=== PATIENT | male | born 1980 | race Caucasian/White ===

== ENCOUNTER 2018-10-03 14:55 | Inpatient (IN) | payer OTHER ==
[2018-10-03 15:13] VITALS: BMI 27.1
--- NOTE | 2018-10-03 16:31 | HP ---
CIWA Score Nausea/Vomitin-Mild Nausea/No Vomiting Muscle Tremors: 4-Moderate,w/Arms Extend Anxiety: 1-Mildly Anxious Agitation: 4-Moderately Restless Paroxysmal Sweats: 3 (facial moisture) Orientation: 1-Uncertain about Date Tacttile Disturbances: 0-None Auditory Disturbances: 0-None Visual Disturbances: 0-None Headache: 2-Mild CIWA-Ar Total Score: 16 - Admission Criteria [facility] Guidelines: Admission for Medically Managed Detox: Requires at least one of the followin. CIWA greater than 12 2. Seizures within the past 24 hours 3. Delirium tremens within the past 24 hours 4. Hallucinations within the past 24 hours 5. Acute intervention needed for co occurring medical disorder 6. Acute intervention needed for co occurring psychiatric disorder 7. Severe withdrawal that cannot be handled at a lower level of care (continued vomiting, continued diarrhea, abnormal vital signs) requiring intravenous medication and/or fluids 8. Patient presents the following: CIWA greater than 12 Admission Criteria Met: Admission criteria met Admission ROS [facility] Chief Complaint: Here for Xanax and Klonopin withdrawal. Allergies/Adverse Reactions: Allergies Allergy/AdvReac Type Severity Reaction Status Date / Time Fish Containing Products Allergy Severe Rash Verified 10/03/18 17:40 History of Present Illness: Here for Xanax detox. States also uses clonazepam. Heroin IVDU use since age 16. Stopped when started on MMTP. Klonopin and Xanax use since age 14. Started with prescriptions and then illicit use. Marijuana use since 14. [facility] - [phone] for approx 3 years. States currently on 135 mg Methadone PO Daily. Last medicated today and given 2 THBs. Hx: Last seizure 1 year ago, last overdose 2 yrs ago. Denies significant PMH/PSH Patient Name: Emeka Abel Date: 1980 Address: [address] [place] [address] Sex: Male Rx Written Rx Dispensed Drug Quantity Days Supply Prescriber Name 05/15/2018 05/15/2018 clonazepam 2 mg tablet 14 7 Wilmer Verma 05/08/2018 05/08/2018 clonazepam 2 mg tablet 14 7 Wilmer Verma 04/01/2018 04/01/2018 clonazepam 2 mg tablet 60 30 Cris Iglesias Patient Name: Emeka Abel Date: 1980 Address: [place] [address] Sex: Male Rx Written Rx Dispensed Drug Quantity Days Supply Prescriber Name 01/10/2018 01/11/2018 alprazolam 1 mg tablet 60 30 Tayler Beard MD Exam Limitations: No Limitations - Ebola screening Have you traveled outside of the country in the last 21 days: No Have you had contact with anyone from an Ebola affected area: No Have you been sick,other than usual withdrawal symptoms: No Do you have a fever: No - Review of Systems Constitutional: Diaphoresis, Changes in sleep (Difficulty falling and staying asleep) EENT: reports: Dental Problems (Missing teeth, chipped teeth. No pain. Chews and swallows ok.) Respiratory: reports: No Symptoms reported Cardiac: reports: Irregular Heart Rate (In the past - states normal now) GI: reports: Blood Streaked Bowels (when contipated and pushes hard.), Constipated (r/t methadone - sometimes. Resolves w/ increased fibre, water), Nausea : reports: No Symptoms Reported Musculoskeletal: reports: Back Pain (Intermittent low back pain x 5 years. Poking pain fluctuates from 0-10. Relieved w/ pain medications, rest/ relaxation. Increases w/ sleeping in wrong position, bending.) Integumentary: reports: Rash (on knuckles - dry) Neuro: reports: Headache (Mild), Tremors Endocrine: reports: No Symptoms Reported Hematology: reports: No Symptoms Reported Psychiatric: reports: Judgement Intact, Agitated, Anxious (Very nervous and anxious), Depressed (States mild. Denies thoughts of harming self or others), Disorientated (Knows month, year, missed date by 2 days) Patient History - PPD History Previous Implant?: Yes Documented Results: Negative w/o proof Implanted On Prior [facility] Admission?: No PPD to be Administered?: Yes - Smoking Cessation Smoking history: Current every day smoker Have you smoked in the past 12 months: Yes Aproximately how many cigarettes per day: 20 Hx Chewing Tobacco Use: No Initiated information on smoking cessation: No 'Breaking Loose' booklet given: 10/03/18 - Substance & Tx. History Hx Alcohol Use: Yes Hx Substance Use: Yes Substance Use Type: Cocaine, Heroin (Stopped 3 years ago and is on a MMTP), Marijuana Hx Substance Use Treatment: Yes (detox, currently on a MMTP) - Substances Abused Alprazolam (Xanax) Age of first use: 14 Marijuana/Hashish Route: Smoking Age of first use: 14 Benzodiazepine (Klonopin) Route: Oral Frequency: Daily Amount used: 2MG Age of first use: 14 Date of Last Use: 10/03/18 Admission Physical Exam [facility] - Vital Signs Vital Signs: Vital Signs - 24 hr 10/03/18 15:09 Temperature 98.3 F Pulse Rate 84 Respiratory 18 Rate Blood Pressure 132/58 L - Physical General Appearance: Yes: Moderate Distress, Tremorous, Irritable, Anxious (Very) HEENTM: Yes: EOMI, Hearing grossly Normal, Normal Voice, MICHELLE, Pharynx Normal Respiratory: Yes: Chest Non-Tender, Lungs Clear, Normal Breath Sounds, No Respiratory Distress Neck: Yes: No masses,lesions,Nodules, Supple Breast: Yes: Breast Exam Deferred Cardiology: Yes: Regular Rhythm, Regular Rate, S1, S2 Abdominal: Yes: Non Tender, Soft, Increased Bowel Sounds Genitourinary: Yes: Within Normal Limits Back: Yes: Normal Inspection Musculoskeletal: Yes: full range of Motion, Gait Steady Extremities: Yes: Normal Capillary Refill, Normal Range of Motion, Non-Tender, Tremors (w/ aems extended) Neurological: Yes: wet roller II-XII NML intact, Alert, Motor Strength 5/5, Normal Response Integumentary: Yes: Normal Color, Dry, Warm, Rash (Dry, raised, flaky psoriasis- like rash on knuckles) Lymphatic: Yes: Within Normal Limits - Diagnostic (1) Sedative, hypnotic or anxiolytic dependence with withdrawal, uncomplicated Current Visit: Yes Status: Acute (2) Nicotine dependence, uncomplicated Current Visit: Yes Status: Chronic Qualifiers: Nicotine product type: cigarettes Qualified Code(s): F17.210 - Nicotine dependence, cigarettes, uncomplicated (3) Methadone maintenance therapy patient Current Visit: Yes Status: Chronic (4) Cannabis dependence, uncomplicated Current Visit: Yes Status: Chronic (5) Rash Current Visit: Yes Status: Chronic Comment: psoritic-like rash on knuckles Cleared for Admission [facility] - Detox or Rehab [facility] Level of Care: Medically Managed Detox Regimen/Protocol: Valium [facility] Breath Alcohol Content Breath Alcohol Content: 0 Urine Drug Screen - Results Drug Screen Negative: No Urine Drug Screen Results: THC-Marijuana, BZO-Benzodiazepines, MTD-Methadone
[2018-10-03] MEDS ORDERED: MAGNESIUM HYDROX 2400MG/30ML ORAL SUSPENSION 30 ML CUP PO PRN (17:05)
[2018-10-03] MEDS ORDERED: MAG HYDROX/AL HYDROX/SIMETH 30 ML UNIT-DOSE CUP PO PRN (17:05)
[2018-10-03] MEDS ORDERED: ACETAMINOPHEN 325 MG TABLET (FP) PO PRN (17:05)
[2018-10-03] MEDS ORDERED: MENTHOL/PHENOL 1 EACH UD MM PRN (17:05)
[2018-10-03] MEDS ORDERED: NICOTINE POLACRILEX 2 MG GUM BC PRN (17:05)
[2018-10-03] MEDS ORDERED: MAGNESIUM CITRATE 300 ML BOTTLE PO PRN (17:05)
[2018-10-03] MEDS ORDERED: LOPERAMIDE HCL 2 MG CAPSULE PO PRN (17:05)
[2018-10-03] MEDS ORDERED: diazePAM 5 MG TABLET PO ONE (18:30)
[2018-10-03] MEDS: diazePAM 5 MG TABLET PO SCH (21:55)
[2018-10-03] MEDS: THIAMINE HCL 100 MG TABLET (FP) PO SCH (21:55)
[2018-10-03] MEDS: MELATONIN 5 MG TABLETS PO PRN (21:56)
[2018-10-03] MEDS: BETAMETHASONE DIP 0.05% TP LOTION 60 ML BOTTLE TP SCH (23:08)
[2018-10-04] MEDS: diazePAM 5 MG TABLET PO SCH ×3 (05:25→22:11)
[2018-10-04] MEDS ORDERED: METHADONE HCL 40 MG DISPERSABLE TABLET PO SCH (10:00)
[2018-10-04] MEDS: diazePAM 5 MG TABLET PO PRN ×3 (10:43→23:55)
[2018-10-04] MEDS: PRENATAL VITAMINS W/ FOLIC ACID TABLET (FP) PO SCH (10:43)
[2018-10-04] MEDS: NICOTINE 21 MG/24 HOURS TOPICAL PATCH TD SCH (10:44)
[2018-10-04] MEDS ORDERED: METHADONE 120 MG, METHADONE 10 MG, METHADONE 5 MG PO ONE (10:45)
[2018-10-04] MEDS: BETAMETHASONE DIP 0.05% TP LOTION 60 ML BOTTLE TP SCH ×2 (10:45→22:40)
[2018-10-04 10:59] LABS: ALBUMIN 3.3 g/dl (3.4-5.0); ALK PHOS 66 U/L (45-117); ANION GAP 5 MMOL/L (8-16); BILIRUBIN,TOTAL 0.2 mg/dL (0.2-1); BLOOD UREA NITROGEN 18 mg/dL (7-18); CALCIUM 8.1 mg/dL (8.5-10.1); CHLORIDE 102 mmol/L (98-107); CO2 31 mmol/L (21-32); CREATININE 0.8 mg/dL (0.55-1.3); GLUCOSE,RANDOM 115 mg/dL (74-106); SGOT/AST 24 U/L (15-37); SGPT/ALT 32 U/L (13-61); SODIUM 138 mmol/L (136-145); TOT PROT 6.2 g/dl (6.4-8.2)
[2018-10-04] MEDS ORDERED: METHADONE HCL 40 MG DISPERSABLE TABLET ONE (11:01)
[2018-10-04] MEDS ORDERED: METHADONE HCL 10 MG TABLET ONE (11:01)
[2018-10-04] MEDS ORDERED: METHADONE HCL 5 MG TABLET ONE (11:02)
[2018-10-04 11:04] LABS: HEMATOCRIT 38.9 % (35.4-49); MCH 29.9 pg (25.7-33.7); MCHC 33.3 g/dl (32.0-35.9); MEAN CELL VOLUME 89.9 fl (80-96); PLATELET COUNT 180 K/MM3 (134-434); RBC 4.33 M/mm3 (4.00-5.60); WHITE BLOOD COUNT 5.6 K/mm3 (4.0-10.0)
[2018-10-04 11:07] LABS: URINE APPEARANCE CLOUDY; URINE BILIRUBIN NEGATIVE (<2.0 mg/dL); URINE COLOR YELLOW; URINE GLUCOSE (UA) NEGATIVE (NEGATIVE); URINE KETONE NEGATIVE (NEGATIVE); URINE LEUK ESTERASE 1+ (NEGATIVE); URINE NITRITE NEGATIVE (NEGATIVE); URINE PROTEIN NEGATIVE (NEGATIVE); URINE UROBILINOGEN NEGATIVE mg/dL (0.2-1.0)
[2018-10-04 11:13] LABS: EPI CELLS RARE /HPF (FEW); URINE MUCUS RARE
--- NOTE | 2018-10-04 11:27 | PN ---
S CIWA - CIWA Score Nausea/Vomitin Muscle Tremors: 2 Anxiety: 2 Agitation: 2 Paroxysmal Sweats: 2 Orientation: 0-Oriented Tacttile Disturbances: 1-Very Mild Itch/Numbness Auditory Disturbances: 0-None Visual Disturbances: 0-None Headache: 0-None Present CIWA-Ar Total Score: 11 S Progress Note (SOAP) Subjective: Tremors, sweats, interrupted sleep and generalized pain Objective: 10/04/18 11:25 Vital Signs Temperature 97 F L 10/04/18 09:56 Pulse Rate 60 10/04/18 09:56 Respiratory Rate 18 10/04/18 09:56 Blood Pressure 116/68 10/04/18 09:56 O2 Sat by Pulse Oximetry (%) Laboratory Last Values WBC 5.6 K/mm3 (4.0-10.0) 10/04/18 07:40 RBC 4.33 M/mm3 (4.00-5.60) 10/04/18 07:40 Hgb 13.0 GM/dL (11.7-16.9) 10/04/18 07:40 Hct 38.9 % (35.4-49) 10/04/18 07:40 MCV 89.9 fl (80-96) 10/04/18 07:40 MCH 29.9 pg (25.7-33.7) 10/04/18 07:40 MCHC 33.3 g/dl (32.0-35.9) 10/04/18 07:40 RDW 13.0 % (11.9-15.9) 10/04/18 07:40 Plt Count 180 K/MM3 (134-434) 10/04/18 07:40 MPV 9.0 fl (7.5-11.1) 10/04/18 07:40 Sodium 138 mmol/L (136-145) 10/04/18 07:40 Potassium 4.0 mmol/L (3.5-5.1) 10/04/18 07:40 Chloride 102 mmol/L (98-107) 10/04/18 07:40 Carbon Dioxide 31 mmol/L (21-32) 10/04/18 07:40 Anion Gap 5 MMOL/L (8-16) L 10/04/18 07:40 BUN 18 mg/dL (7-18) 10/04/18 07:40 Creatinine 0.8 mg/dL (0.55-1.3) 10/04/18 07:40 Creat Clearance w eGFR > 60 (>60) 10/04/18 07:40 Random Glucose 115 mg/dL (74-106) H 10/04/18 07:40 Calcium 8.1 mg/dL (8.5-10.1) L 10/04/18 07:40 Total Bilirubin 0.2 mg/dL (0.2-1) 10/04/18 07:40 AST 24 U/L (15-37) 10/04/18 07:40 ALT 32 U/L (13-61) 10/04/18 07:40 Alkaline Phosphatase 66 U/L (45-117) 10/04/18 07:40 Total Protein 6.2 g/dl (6.4-8.2) L 10/04/18 07:40 Albumin 3.3 g/dl (3.4-5.0) L 10/04/18 07:40 Urine Color Yellow 10/04/18 08:50 Urine Appearance Cloudy 10/04/18 08:50 Urine pH 5.0 (5.0-8.0) 10/04/18 08:50 Ur Specific [place] 1.020 (1.010-1.035) 10/04/18 08:50 Urine Protein Negative (NEGATIVE) 10/04/18 08:50 Urine Glucose (UA) Negative (NEGATIVE) 10/04/18 08:50 Urine Ketones Negative (NEGATIVE) 10/04/18 08:50 Urine Blood Negative (NEGATIVE) 10/04/18 08:50 Urine Nitrite Negative (NEGATIVE) 10/04/18 08:50 Urine Bilirubin Negative (<2.0 mg/dL) 10/04/18 08:50 Urine Urobilinogen Negative mg/dL (0.2-1.0) 10/04/18 08:50 Ur Leukocyte Esterase 1+ (NEGATIVE) H 10/04/18 08:50 Urine WBC (Auto) 4 /hpf (3-5) 10/04/18 08:50 Urine RBC (Auto) 1 /hpf (0-3) 10/04/18 08:50 Ur Epithelial Cells Rare /HPF (FEW) 10/04/18 08:50 Urine Mucus Rare 10/04/18 08:50 Labs noted 1+ Leukocyte Esterase-asymptomatic of UTI Assessment: 10/04/18 11:26 Withdrawal sx Plan: Continue detox Encourage oral fluid intake
[2018-10-04] MEDS: THIAMINE HCL 100 MG TABLET (FP) PO SCH (22:11)
[2018-10-04] MEDS: MELATONIN 5 MG TABLETS PO PRN (22:12)
[2018-10-05] MEDS ORDERED: METHADONE HCL 40 MG DISPERSABLE TABLET ONE (04:17)
[2018-10-05] MEDS ORDERED: METHADONE HCL 10 MG TABLET ONE (04:17)
[2018-10-05] MEDS ORDERED: METHADONE HCL 5 MG TABLET ONE (04:17)
[2018-10-05] MEDS: METHADONE 120 MG, METHADONE 10 MG, METHADONE 5 MG PO SCH (06:13)
[2018-10-05] MEDS: diazePAM 5 MG TABLET PO PRN ×3 (06:19→19:42)
[2018-10-05] MEDS: PRENATAL VITAMINS W/ FOLIC ACID TABLET (FP) PO SCH (10:31)
[2018-10-05] MEDS: NICOTINE 21 MG/24 HOURS TOPICAL PATCH TD SCH (10:31)
[2018-10-05] MEDS: diazePAM 5 MG TABLET PO SCH ×2 (10:31→22:04)
[2018-10-05] MEDS: BETAMETHASONE DIP 0.05% TP LOTION 60 ML BOTTLE TP SCH ×2 (10:32→22:04)
[2018-10-05] MEDS ORDERED: diphenhydrAMINE HCL 25 MG CAPSULE (FP) PO PRN (10:49)
--- NOTE | 2018-10-05 12:35 | EKG ---
Test Reason : Blood Pressure : / mmHG Vent. Rate : 071 BPM Atrial Rate : 071 BPM P-R Int : 154 ms QRS Dur : 084 ms QT Int : 402 ms P-R-T Axes : 064 055 042 degrees QTc Int : 436 ms NORMAL SINUS RHYTHM NORMAL ECG NO PREVIOUS ECGS AVAILABLE Confirmed by GOPAL WHITE MD ([id number]) on 10/05/2018 12:35:26 PM Referred By: Confirmed By:GOPAL WHITE MD
--- NOTE | 2018-10-05 16:47 | PN ---
[facility] CIWA - CIWA Score Nausea/Vomitin-Mild Nausea/No Vomiting Muscle Tremors: 2 Anxiety: 2 Agitation: 2 Paroxysmal Sweats: 2 Orientation: 0-Oriented Tacttile Disturbances: 0-None Auditory Disturbances: 0-None Visual Disturbances: 0-None Headache: 0-None Present CIWA-Ar Total Score: 9 [facility] Progress Note (SOAP) Subjective: Sweating, chills, tremor, interrupted sleep Objective: 10/05/18 16:45 Last Vital Signs Temp Pulse Resp BP Pulse Ox 96.7 F L 82 18 104/68 10/05/18 13:26 10/05/18 13:26 10/05/18 13:26 10/05/18 13:26 Laboratory Tests 10/04/18 10/04/18 10/04/18 07:40 07:40 07:40 WBC 5.6 RBC 4.33 Hgb 13.0 Hct 38.9 MCV 89.9 MCH 29.9 MCHC 33.3 RDW 13.0 Plt Count 180 MPV 9.0 Sodium 138 Potassium 4.0 Chloride 102 Carbon Dioxide 31 Anion Gap 5 L BUN 18 Creatinine 0.8 Creat Clearance w eGFR > 60 Random Glucose 115 H Calcium 8.1 L Total Bilirubin 0.2 AST 24 ALT 32 Alkaline Phosphatase 66 Total Protein 6.2 L Albumin 3.3 L Urine Color Urine Appearance Urine pH Ur Specific [place] Urine Protein Urine Glucose (UA) Urine Ketones Urine Blood Urine Nitrite Urine Bilirubin Urine Urobilinogen Ur Leukocyte Esterase Urine WBC (Auto) Urine RBC (Auto) Ur Epithelial Cells Urine Mucus RPR Titer Nonreactive HIV 1&2 Antibody Screen HIV P24 Antigen 10/04/18 10/04/18 07:40 08:50 WBC RBC Hgb Hct MCV MCH MCHC RDW Plt Count MPV Sodium Potassium Chloride Carbon Dioxide Anion Gap BUN Creatinine Creat Clearance w eGFR Random Glucose Calcium Total Bilirubin AST ALT Alkaline Phosphatase Total Protein Albumin Urine Color Yellow Urine Appearance Cloudy Urine pH 5.0 Ur Specific [place] 1.020 Urine Protein Negative Urine Glucose (UA) Negative Urine Ketones Negative Urine Blood Negative Urine Nitrite Negative Urine Bilirubin Negative Urine Urobilinogen Negative Ur Leukocyte Esterase 1+ H Urine WBC (Auto) 4 Urine RBC (Auto) 1 Ur Epithelial Cells Rare Urine Mucus Rare RPR Titer HIV 1&2 Antibody Screen Negative HIV P24 Antigen Negative Labs reviewed Assessment: 10/05/18 16:46 Withdrawal symptoms Plan: Continue detox Encouraged PO water intake
[2018-10-05] MEDS: IBUPROFEN 400 MG TABLET (FP) PO PRN (19:41)
[2018-10-05] MEDS: THIAMINE HCL 100 MG TABLET (FP) PO SCH (22:04)
[2018-10-06] MEDS: diazePAM 5 MG TABLET PO PRN ×3 (01:44→13:57)
[2018-10-06] MEDS ORDERED: METHADONE HCL 10 MG TABLET ONE (04:50)
[2018-10-06] MEDS ORDERED: METHADONE HCL 5 MG TABLET ONE (04:51)
[2018-10-06] MEDS ORDERED: METHADONE HCL 40 MG DISPERSABLE TABLET ONE (04:51)
[2018-10-06] MEDS: METHADONE 120 MG, METHADONE 10 MG, METHADONE 5 MG PO SCH (05:17)
[2018-10-06] MEDS: BETAMETHASONE DIP 0.05% TP LOTION 60 ML BOTTLE TP SCH (10:24)
[2018-10-06] MEDS: NICOTINE 21 MG/24 HOURS TOPICAL PATCH TD SCH (10:25)
[2018-10-06] MEDS: PRENATAL VITAMINS W/ FOLIC ACID TABLET (FP) PO SCH (10:26)
[2018-10-06] MEDS: diazePAM 5 MG TABLET PO SCH (10:26)
--- NOTE | 2018-10-06 10:58 | DS ---
[facility] Detox Discharge Summary Admission Date: 10/03/18 Discharge Date: 10/06/18 - History Present History: Sedative Dependence Additional Comments: 37 years old male admitted on 10/03/18 for benzo withdrawal stabilization doing well throughout the detox process requests to begin rehab today patient reported that he is able to tolerate the withdrawal sx alert no acute distress aftercare revelation - Physical Exam Results Vital Signs: Vital Signs Temperature 97.6 F 10/06/18 09:50 Pulse Rate 83 10/06/18 09:50 Respiratory Rate 16 10/06/18 09:50 Blood Pressure 111/71 10/06/18 09:50 O2 Sat by Pulse Oximetry (%) Pertinent Admission Physical Exam Findings: benzo withdrawal sx Vital Signs Temperature 97.6 F 10/06/18 09:50 Pulse Rate 83 10/06/18 09:50 Respiratory Rate 16 10/06/18 09:50 Blood Pressure 111/71 10/06/18 09:50 O2 Sat by Pulse Oximetry (%) Laboratory Last Values WBC 5.6 K/mm3 (4.0-10.0) 10/04/18 07:40 RBC 4.33 M/mm3 (4.00-5.60) 10/04/18 07:40 Hgb 13.0 GM/dL (11.7-16.9) 10/04/18 07:40 Hct 38.9 % (35.4-49) 10/04/18 07:40 MCV 89.9 fl (80-96) 10/04/18 07:40 MCH 29.9 pg (25.7-33.7) 10/04/18 07:40 MCHC 33.3 g/dl (32.0-35.9) 10/04/18 07:40 RDW 13.0 % (11.9-15.9) 10/04/18 07:40 Plt Count 180 K/MM3 (134-434) 10/04/18 07:40 MPV 9.0 fl (7.5-11.1) 10/04/18 07:40 Sodium 138 mmol/L (136-145) 10/04/18 07:40 Potassium 4.0 mmol/L (3.5-5.1) 10/04/18 07:40 Chloride 102 mmol/L (98-107) 10/04/18 07:40 Carbon Dioxide 31 mmol/L (21-32) 10/04/18 07:40 Anion Gap 5 MMOL/L (8-16) L 10/04/18 07:40 BUN 18 mg/dL (7-18) 10/04/18 07:40 Creatinine 0.8 mg/dL (0.55-1.3) 10/04/18 07:40 Creat Clearance w eGFR > 60 (>60) 10/04/18 07:40 Random Glucose 115 mg/dL (74-106) H 10/04/18 07:40 Calcium 8.1 mg/dL (8.5-10.1) L 10/04/18 07:40 Total Bilirubin 0.2 mg/dL (0.2-1) 10/04/18 07:40 AST 24 U/L (15-37) 10/04/18 07:40 ALT 32 U/L (13-61) 10/04/18 07:40 Alkaline Phosphatase 66 U/L (45-117) 10/04/18 07:40 Total Protein 6.2 g/dl (6.4-8.2) L 10/04/18 07:40 Albumin 3.3 g/dl (3.4-5.0) L 10/04/18 07:40 Urine Color Yellow 10/04/18 08:50 Urine Appearance Cloudy 10/04/18 08:50 Urine pH 5.0 (5.0-8.0) 10/04/18 08:50 Ur Specific [place] 1.020 (1.010-1.035) 10/04/18 08:50 Urine Protein Negative (NEGATIVE) 10/04/18 08:50 Urine Glucose (UA) Negative (NEGATIVE) 10/04/18 08:50 Urine Ketones Negative (NEGATIVE) 10/04/18 08:50 Urine Blood Negative (NEGATIVE) 10/04/18 08:50 Urine Nitrite Negative (NEGATIVE) 10/04/18 08:50 Urine Bilirubin Negative (<2.0 mg/dL) 10/04/18 08:50 Urine Urobilinogen Negative mg/dL (0.2-1.0) 10/04/18 08:50 Ur Leukocyte Esterase 1+ (NEGATIVE) H 10/04/18 08:50 Urine WBC (Auto) 4 /hpf (3-5) 10/04/18 08:50 Urine RBC (Auto) 1 /hpf (0-3) 10/04/18 08:50 Ur Epithelial Cells Rare /HPF (FEW) 10/04/18 08:50 Urine Mucus Rare 10/04/18 08:50 RPR Titer Nonreactive (NONREACTIVE) 10/04/18 07:40 HIV 1&2 Antibody Screen Negative 10/04/18 07:40 HIV P24 Antigen Negative 10/04/18 07:40 lab noted - Treatment Hospital Course: Detox Protocol Followed, Detoxed Safely, Responded well, Discharged Condition Good, Rehab Referral Accepted Patient has Accepted a Rehab Referral to: [facility] - Medication Discharge Medications: Ambulatory Orders NK [No Known Home Medication] 10/03/18 - Diagnosis (1) Sedative, hypnotic or anxiolytic dependence with withdrawal, uncomplicated Current Visit: Yes Status: Acute (2) Methadone maintenance therapy patient Current Visit: Yes Status: Chronic (3) Nicotine dependence, uncomplicated Current Visit: Yes Status: Acute Qualifiers: Nicotine product type: cigarettes Qualified Code(s): F17.210 - Nicotine dependence, cigarettes, uncomplicated - AMA Did Patient Leave Against Medical Advice: No
[2018-10-06] MEDS: IBUPROFEN 400 MG TABLET (FP) PO PRN (14:00)
[2018-10-06 17:23] VITALS: BP 120/76; PULSE 97; TEMP 96.2
[2018-10-07] MEDS ORDERED: diazePAM 5 MG TABLET PO SCH (10:00)
== END 2018-10-06 17:45 | disposition home or self-care (01) | DRG 773 ==
LOC: YASAS 14:55 → Y3N 18:18
PROC: HZ2ZZZZ Detoxification Services for Substance Abuse Treatment (ICD-10-PCS; principal; 2018-10-03)
DX: F13.230 Sedative, hypnotic or anxiolytic dependence with withdrawal, uncomplicated (principal); F11.20 Opioid dependence, uncomplicated; F12.20 Cannabis dependence, uncomplicated; F17.210 Nicotine dependence, cigarettes, uncomplicated; R21 Rash and other nonspecific skin eruption; Z91.013 Allergy to seafood
CPT/HCPCS: 36415; 80053; 81003; 81015; 85027; 86593; 87389; 93005; 93010

== ENCOUNTER 2023-11-11 14:23 | Inpatient (IN) | payer OTHER ==
[2023-11-11 15:37] VITALS: BMI 20.2
[2023-11-11] MEDS ORDERED: DICYCLOMINE HCL 10 MG CAPSULE PO PRN (19:43)
[2023-11-11] MEDS ORDERED: P-EPHED 60MG/TRIPROLIDI 2.5MG TABLET PO PRN (19:43)
[2023-11-11] MEDS ORDERED: ONDANSETRON *ODT* 4 MG TABLET SL PRN (19:43)
[2023-11-11] MEDS ORDERED: ACETAMINOPHEN 325 MG TABLET (FP) PO PRN (19:43)
[2023-11-11] MEDS ORDERED: MAG HYDROX/AL HYDROX/SIMETH 30 ML UNIT-DOSE CUP PO PRN (19:43)
[2023-11-11] MEDS ORDERED: IBUPROFEN 400 MG TABLET (FP) PO PRN (19:43)
[2023-11-11] MEDS ORDERED: POLYETHYLENE GLYCOL (HEALTHYLAX) 3350 17 GM PACKET PO PRN (19:43)
[2023-11-11] MEDS ORDERED: BISMUTH SUBSALICYLATE 524 MG/30 ML PO PRN (19:43)
[2023-11-11] MEDS ORDERED: guaiFENesin 600 MG TABLET.ER (FP) PO PRN (19:43)
[2023-11-11] MEDS ORDERED: NALOXONE HCL 0.4 MG/ML VIAL IM PRN (19:43)
[2023-11-11] MEDS ORDERED: BENZONATATE 200 MG CAPSULE PO PRN (19:43)
[2023-11-11] MEDS ORDERED: NICOTINE POLACRILEX 2 MG LOZENGE BC PRN (19:43)
[2023-11-11] MEDS ORDERED: NALOXONE HCL (KLOXXADO) 8 MG SPRAY NS PRN (19:43)
[2023-11-11] MEDS ORDERED: IBUPROFEN 600 MG TABLET (FP) PO PRN (19:43)
[2023-11-11] MEDS ORDERED: MAGNESIUM HYDROX 2400MG/30ML ORAL SUSPENSION 30 ML CUP PO PRN (19:43)
[2023-11-11] MEDS ORDERED: LOPERAMIDE HCL 2 MG CAPSULE PO PRN (19:43)
[2023-11-11] MEDS ORDERED: BENZOCAINE/MENTHOL (CHLORASEPTIC ) LOZENGE MM PRN (19:43)
[2023-11-11] MEDS: hydrOXYzine PAMOATE 25 MG CAPSULE (FP) PO PRN (21:26)
[2023-11-11] MEDS: levETIRAcetam 500 MG TABLET (FP) PO SCH (21:26)
[2023-11-11] MEDS: THIAMINE HCL 100 MG TABLET (FP) PO SCH (21:26)
[2023-11-11] MEDS ORDERED: MELATONIN 5 MG TABLETS PO SCH (22:00)
[2023-11-12] MEDS: PRENATAL VITAMINS W/ FOLIC ACID TABLET (FP) PO SCH (09:38)
[2023-11-12] MEDS: levETIRAcetam 500 MG TABLET (FP) PO SCH ×2 (09:38→22:21)
[2023-11-12] MEDS: hydrOXYzine PAMOATE 25 MG CAPSULE (FP) PO PRN ×2 (09:40→17:27)
[2023-11-12] MEDS ORDERED: diazePAM 5 MG TABLET PO PRN (10:00)
[2023-11-12] MEDS ORDERED: methaDONE HCL 10 MG TABLET PO ONE (10:15)
[2023-11-12] MEDS: diazePAM 5 MG TABLET PO SCH ×3 (10:22→22:21)
[2023-11-12 11:46] LABS: HEMOGLOBIN 12.4 GM/dL (11.7-16.9); MCH 29.3 pg (25.7-33.7); MCHC 33.5 g/dl (32.0-35.9); MEAN CELL VOLUME 87.4 fl (80-96); MEAN PLT VOLUME 8.6 fl (7.5-11.1); PLATELET COUNT 248 10^3/uL (134-434); RBC 4.23 M/mm3 (4.00-5.60); RDW 12.2 % (11.9-15.9)
[2023-11-12 11:48] LABS: POTASSIUM 4.3 mmol/L (3.5-5.1)
[2023-11-12 11:49] LABS: CALCIUM 8.7 mg/dL (8.5-10.1)
[2023-11-12 11:50] LABS: ALBUMIN 3.1 g/dl (3.4-5.0); BLOOD UREA NITROGEN 20.3 mg/dL (7-18)
[2023-11-12 11:53] LABS: CREATININE 0.8 mg/dL (0.55-1.3)
[2023-11-12 11:55] LABS: BILIRUBIN,TOTAL 0.2 mg/dL (0.2-1); TOT PROT 6.6 g/dl (6.4-8.2)
[2023-11-12] MEDS: GABAPENTIN 400 MG CAPSULE PO SCH ×2 (13:50→22:21)
[2023-11-12] MEDS: SUVOREXANT 10 MG TABLET PO PRN (22:21)
[2023-11-12] MEDS: THIAMINE HCL 100 MG TABLET (FP) PO SCH (22:21)
[2023-11-13] MEDS: diazePAM 5 MG TABLET PO SCH ×3 (05:17→22:02)
[2023-11-13] MEDS: GABAPENTIN 400 MG CAPSULE PO SCH ×3 (05:17→22:03)
[2023-11-13] MEDS ORDERED: methaDONE HCL 10 MG TABLET PO SCH (06:00)
[2023-11-13] MEDS: PRENATAL VITAMINS W/ FOLIC ACID TABLET (FP) PO SCH (09:54)
[2023-11-13] MEDS: levETIRAcetam 500 MG TABLET (FP) PO SCH ×2 (09:54→22:03)
[2023-11-13] MEDS: hydrOXYzine PAMOATE 25 MG CAPSULE (FP) PO PRN ×2 (09:55→18:27)
[2023-11-13] MEDS ORDERED: diazePAM 5 MG TABLET PO PRN (11:27)
[2023-11-13] MEDS: METHOCARBAMOL 500 MG TABLET PO PRN (18:27)
[2023-11-13] MEDS: THIAMINE HCL 100 MG TABLET (FP) PO SCH (22:02)
[2023-11-13] MEDS: SUVOREXANT 10 MG TABLET PO PRN (22:04)
[2023-11-14] MEDS: diazePAM 5 MG TABLET PO SCH ×2 (05:47→17:48)
[2023-11-14] MEDS: GABAPENTIN 400 MG CAPSULE PO SCH ×3 (05:47→22:35)
[2023-11-14] MEDS: levETIRAcetam 500 MG TABLET (FP) PO SCH ×2 (09:49→22:35)
[2023-11-14] MEDS: PRENATAL VITAMINS W/ FOLIC ACID TABLET (FP) PO SCH (09:49)
[2023-11-14] MEDS: hydrOXYzine PAMOATE 25 MG CAPSULE (FP) PO PRN ×2 (12:58→17:48)
[2023-11-14] MEDS: THIAMINE HCL 100 MG TABLET (FP) PO SCH (22:35)
[2023-11-14] MEDS: SUVOREXANT 10 MG TABLET PO PRN (22:35)
[2023-11-15] MEDS: GABAPENTIN 400 MG CAPSULE PO SCH ×2 (05:57→13:36)
[2023-11-15] MEDS ORDERED: diazePAM 5 MG TABLET PO ONE (06:00)
[2023-11-15 09:24] VITALS: RESP 16
[2023-11-15] MEDS: PRENATAL VITAMINS W/ FOLIC ACID TABLET (FP) PO SCH (10:00)
[2023-11-15] MEDS: levETIRAcetam 500 MG TABLET (FP) PO SCH (10:01)
[2023-11-15] MEDS: hydrOXYzine PAMOATE 25 MG CAPSULE (FP) PO PRN (10:01)
[2023-11-15 12:48] VITALS: BP 118/73; PULSE 78; TEMP 98
[2023-11-15] MEDS: METHOCARBAMOL 500 MG TABLET PO PRN (13:36)
== END 2023-11-15 14:17 | disposition home or self-care (01) | DRG 773 ==
LOC: YASAS 14:23 → Y6N 20:23
PROVIDERS: ADMIT Allergy & Immunology; ATTEND Surgery
PROC: HZ2ZZZZ Detoxification Services for Substance Abuse Treatment (ICD-10-PCS; principal; 2023-11-11)
DX: F13.230 Sedative, hypnotic or anxiolytic dependence with withdrawal, uncomplicated (principal); F11.20 Opioid dependence, uncomplicated; F14.20 Cocaine dependence, uncomplicated; F12.20 Cannabis dependence, uncomplicated; F17.210 Nicotine dependence, cigarettes, uncomplicated; F33.1 Major depressive disorder, recurrent, moderate; F90.9 Attention-deficit hyperactivity disorder, unspecified type; I25.2 Old myocardial infarction; M54.50 Low back pain, unspecified; G89.29 Other chronic pain; Z62.810 Personal history of physical and sexual abuse in childhood; Z63.8 Other specified problems related to primary support group; Z56.0 Unemployment, unspecified; Z59.01 Sheltered homelessness
CPT/HCPCS: 36415; 80053; 85027; 86780; 87635; 87811

== ENCOUNTER 2023-11-15 13:55 | Inpatient (IN) | payer OTHER ==
[2023-11-15] MEDS ORDERED: MAGNESIUM HYDROX 2400MG/30ML ORAL SUSPENSION 30 ML CUP PO PRN (15:12)
[2023-11-15] MEDS ORDERED: BENZONATATE 200 MG CAPSULE PO PRN (15:12)
[2023-11-15] MEDS ORDERED: BENZOCAINE/MENTHOL (CHLORASEPTIC ) LOZENGE MM PRN (15:12)
[2023-11-15] MEDS ORDERED: NICOTINE 21 MG/24 HOURS TOPICAL PATCH TD PRN (15:12)
[2023-11-15] MEDS ORDERED: MAG HYDROX/AL HYDROX/SIMETH 30 ML UNIT-DOSE CUP PO PRN (15:12)
[2023-11-15] MEDS ORDERED: NICOTINE POLACRILEX 4 MG GUM BUC PRN (15:12)
[2023-11-15] MEDS ORDERED: NALOXONE HCL (KLOXXADO) 8 MG SPRAY NS PRN (15:12)
[2023-11-15] MEDS ORDERED: guaiFENesin 600 MG TABLET.ER (FP) PO PRN (15:12)
[2023-11-15] MEDS ORDERED: NALOXONE HCL 0.4 MG/ML VIAL IVPUSH PRN (15:12)
[2023-11-15] MEDS ORDERED: POLYETHYLENE GLYCOL (HEALTHYLAX) 3350 17 GM PACKET PO PRN (15:12)
[2023-11-15] MEDS ORDERED: AMMONIUM LACTATE 12% LOTION 225 GM BOTTLE TP PRN (15:12)
[2023-11-15] MEDS ORDERED: LOPERAMIDE HCL 2 MG CAPSULE PO PRN (15:12)
[2023-11-15] MEDS ORDERED: BISMUTH SUBSALICYLATE 262 MG/15 ML BTL PO PRN (15:28)
[2023-11-15] MEDS ORDERED: DICYCLOMINE HCL 10 MG CAPSULE PO PRN (15:28)
[2023-11-15] MEDS ORDERED: ONDANSETRON *ODT* 4 MG TABLET SL PRN (15:28)
[2023-11-15] MEDS: MELATONIN 5 MG TABLETS PO SCH (21:02)
[2023-11-15] MEDS: THIAMINE HCL 100 MG TABLET (FP) PO SCH (21:03)
[2023-11-15] MEDS: SUVOREXANT 10 MG TABLET PO PRN (21:04)
[2023-11-15] MEDS: GABAPENTIN 400 MG CAPSULE PO SCH (21:04)
[2023-11-15] MEDS: clonazePAM 0.5 MG ODT TABLETS SL SCH (21:04)
[2023-11-15] MEDS: IBUPROFEN 600 MG TABLET (FP) PO PRN (22:02)
[2023-11-16] MEDS ORDERED: methaDONE HCL 10 MG TABLET PO SCH (06:00)
[2023-11-16] MEDS: PRENATAL VITAMINS W/ FOLIC ACID TABLET (FP) PO SCH (09:49)
[2023-11-16] MEDS: clonazePAM 0.5 MG ODT TABLETS SL SCH ×2 (10:11→21:55)
[2023-11-16] MEDS: ACETAMINOPHEN 325 MG TABLET (FP) PO PRN (21:58)
[2023-11-17] MEDS: hydrOXYzine PAMOATE 25 MG CAPSULE (FP) PO PRN (06:39)
[2023-11-17] MEDS: METHOCARBAMOL 500 MG TABLET PO PRN (09:53)
[2023-11-18] MEDS: GABAPENTIN 300 MG CAPSULE PO SCH (21:17)
[2023-11-18] MEDS: clonazePAM 0.5 MG ODT TABLETS SL SCH (21:18)
[2023-11-19] MEDS: clonazePAM 0.5 MG ODT TABLETS SL SCH ×2 (08:54→10:12)
[2023-11-19] MEDS: FLUoxetine HCL 20 MG CAPSULE PO SCH (10:13)
[2023-11-19] MEDS: LACTULOSE 20 GM/30 ML UDC (FOR ORAL USE ONLY) PO SCH (13:10)
[2023-11-24] MEDS: IBUPROFEN 400 MG TABLET (FP) PO PRN (21:12)
[2023-11-28 06:38] VITALS: TEMP 97.7
[2023-11-29 08:01] VITALS: BP 143/84; PULSE 67; RESP 18
== END 2023-11-29 09:13 | disposition home or self-care (01) | DRG 772 ==
LOC: YASAS 13:55 → Y3E 13:59
PROVIDERS: ADMIT Allergy & Immunology; ATTEND Psychiatry & Neurology Pain Medicine
PROC: HZ42ZZZ Group Counseling for Substance Abuse Treatment, Cognitive-Behavioral (ICD-10-PCS; principal; 2023-11-15)
DX: F11.20 Opioid dependence, uncomplicated (principal); F14.20 Cocaine dependence, uncomplicated; F13.20 Sedative, hypnotic or anxiolytic dependence, uncomplicated; F12.20 Cannabis dependence, uncomplicated; F17.210 Nicotine dependence, cigarettes, uncomplicated; F19.282 Other psychoactive substance dependence with psychoactive substance-induced sleep disorder; F19.24 Other psychoactive substance dependence with psychoactive substance-induced mood disorder; F41.9 Anxiety disorder, unspecified; F32.A Depression, unspecified; E72.20 Disorder of urea cycle metabolism, unspecified; M54.50 Low back pain, unspecified; G89.29 Other chronic pain; Z86.19 Personal history of other infectious and parasitic diseases
CPT/HCPCS: 36415; 82140; 86803; 87522

== ENCOUNTER 2024-01-30 14:53 | Inpatient (IN) | payer OTHER ==
[2024-01-30 15:10] VITALS: BMI 23.1
[2024-01-30] MEDS ORDERED: guaiFENesin 600 MG TABLET.ER (FP) PO PRN (16:38)
[2024-01-30] MEDS ORDERED: BENZONATATE 200 MG CAPSULE PO PRN (16:38)
[2024-01-30] MEDS ORDERED: NALOXONE HCL 0.4 MG/ML VIAL IM PRN (16:38)
[2024-01-30] MEDS ORDERED: LOPERAMIDE HCL 2 MG CAPSULE PO PRN (16:38)
[2024-01-30] MEDS ORDERED: NALOXONE HCL (KLOXXADO) 8 MG SPRAY NS PRN (16:38)
[2024-01-30] MEDS ORDERED: NICOTINE POLACRILEX 2 MG GUM BUC PRN (16:38)
[2024-01-30] MEDS ORDERED: BENZOCAINE/MENTHOL (CHLORASEPTIC ) LOZENGE MM PRN (16:38)
[2024-01-30] MEDS ORDERED: P-EPHED 60MG/TRIPROLIDI 2.5MG TABLET PO PRN (16:38)
[2024-01-30] MEDS: clonazePAM 0.5 MG ODT TABLETS SL ONE (18:55)
[2024-01-30] MEDS: MELATONIN 5 MG TABLETS PO SCH (21:05)
[2024-01-30] MEDS: THIAMINE 100 MG TABLET PO SCH (21:06)
[2024-01-30] MEDS: levETIRAcetam 500 MG TABLET (FP) PO SCH (21:06)
[2024-01-30] MEDS: clonazePAM 0.5 MG ODT TABLETS SL SCH (21:07)
[2024-01-30] MEDS: GABAPENTIN 300 MG CAPSULE PO SCH (21:39)
[2024-01-31] MEDS: PRENATAL VITAMINS W/ FOLIC ACID TABLET (FP) PO SCH (09:06)
[2024-01-31] MEDS: methaDONE HCL 40 MG DISPERSABLE TABLET PO ONE (09:06)
[2024-01-31] MEDS: clonazePAM 0.5 MG ODT TABLETS SL ONE (09:49)
[2024-01-31] MEDS: DEXTROAMPHETAMINE/AMPHETAMINE 10 MG CAP.ER.24H PO SCH (09:54)
[2024-01-31] MEDS: FLUoxetine HCL 20 MG CAPSULE PO SCH (09:55)
[2024-01-31 11:27] LABS: HEMATOCRIT 39.6 % (35.4-49); HEMOGLOBIN 13.8 GM/dL (11.7-16.9); MCH 29.5 pg (25.7-33.7); MCHC 34.7 g/dl (32.0-35.9); MEAN CELL VOLUME 84.8 fl (80-96); PLATELET COUNT 255 10^3/uL (134-434); RBC 4.67 M/mm3 (4.00-5.60); RDW 13.4 % (11.9-15.9); WHITE BLOOD COUNT 8.3 K/mm3 (4.0-10.0)
[2024-01-31 12:00] LABS: CALCIUM 9.5 mg/dL (8.5-10.1)
[2024-01-31 12:01] LABS: ALBUMIN 3.8 g/dl (3.4-5.0); BLOOD UREA NITROGEN 17.1 mg/dL (7-18)
[2024-01-31 12:04] LABS: CREATININE 0.7 mg/dL (0.55-1.3)
[2024-01-31 12:06] LABS: TOT PROT 7.2 g/dl (6.4-8.2)
[2024-01-31 12:07] LABS: BILIRUBIN,TOTAL 0.6 mg/dL (0.2-1)
[2024-01-31] MEDS: hydrOXYzine PAMOATE 25 MG CAPSULE (FP) PO PRN (13:41)
[2024-01-31 15:22] LABS: EPI CELLS >36 /uL (0-25.1); HYALINE CASTS 1 /uL (0-3.1); URINE APPEARANCE CLEAR; URINE BACTERIA 600 /uL (0-1359); URINE BILIRUBIN NEGATIVE (NEGATIVE); URINE COLOR YELLOW; URINE GLUCOSE (UA) NEGATIVE (NEGATIVE); URINE KETONE TRACE (NEGATIVE); URINE LEUK ESTERASE 1+ (NEGATIVE); URINE NITRITE NEGATIVE (NEGATIVE); URINE PROTEIN NEGATIVE (NEGATIVE); URINE RBC 2 /uL (0-23.9); URINE WBC 59 /uL (0-25.8)
[2024-01-31 15:47] LABS: URINE CRYSTALS PRESENT /hpf
[2024-01-31] MEDS: clonazePAM 0.5 MG ODT TABLETS SL SCH (21:08)
[2024-02-01] MEDS: methaDONE HCL 40 MG DISPERSABLE TABLET PO SCH (06:20)
[2024-02-01] MEDS: SULFAMETHOXAZOLE/TRIMETHOPRIM 800MG/160MG D.S. TABLET PO SCH (15:06)
[2024-02-01] MEDS: PHENAZOPYRIDINE HCL 100 MG TABLET (FP) PO ONE (15:06)
[2024-02-01] MEDS: IBUPROFEN 600 MG TABLET (FP) PO PRN (18:06)
[2024-02-01] MEDS: SUVOREXANT 10 MG TABLET PO PRN (21:08)
[2024-02-03] MEDS: METHOCARBAMOL 750 MG TABLET PO PRN (15:05)
[2024-02-04] MEDS: IBUPROFEN 400 MG TABLET (FP) PO PRN (12:33)
[2024-02-04] MEDS: MAG HYDROX/AL HYDROX/SIMETH 30 ML UNIT-DOSE CUP PO PRN (12:34)
[2024-02-04] MEDS: SUVOREXANT 10 MG TABLET PO PRN (21:08)
[2024-02-06] MEDS: SUVOREXANT 10 MG TABLET PO PRN (21:07)
[2024-02-07] MEDS: DEXTROAMPHETAMINE/AMPHETAMINE 10 MG CAP.ER.24H PO SCH (09:45)
[2024-02-07] MEDS: clonazePAM 0.5 MG ODT TABLETS SL SCH (21:01)
[2024-02-08] MEDS: methaDONE HCL 40 MG DISPERSABLE TABLET PO SCH (06:02)
[2024-02-08] MEDS: ACETAMINOPHEN 325 MG TABLET (FP) PO PRN (13:10)
[2024-02-10] MEDS: SUVOREXANT 10 MG TABLET PO ONE (22:16)
[2024-02-11] MEDS: SUVOREXANT 10 MG TABLET PO PRN (21:10)
[2024-02-14] MEDS: DEXTROAMPHETAMINE/AMPHETAMINE 10 MG CAP.ER.24H PO SCH (09:52)
[2024-02-14] MEDS ORDERED: methaDONE HCL 40 MG DISPERSABLE TABLET PO SCH (14:45)
[2024-02-14] MEDS: clonazePAM 0.5 MG ODT TABLETS SL SCH (19:53)
[2024-02-14] MEDS: SUVOREXANT 10 MG TABLET PO PRN (21:11)
[2024-02-15] MEDS ORDERED: methaDONE HCL 40 MG DISPERSABLE TABLET PO SCH (06:00)
[2024-02-17] MEDS: MAGNESIUM HYDROX 2400MG/30ML ORAL SUSPENSION 30 ML CUP PO PRN (15:18)
[2024-02-18] MEDS: POLYETHYLENE GLYCOL (HEALTHYLAX) 3350 17 GM PACKET PO PRN (10:47)
[2024-02-18] MEDS: clonazePAM 1 MG ODT TABLETS SL SCH (19:59)
[2024-02-18] MEDS: SUVOREXANT 10 MG TABLET PO PRN (21:07)
[2024-02-19] MEDS ORDERED: methaDONE HCL 40 MG DISPERSABLE TABLET PO SCH (06:00)
[2024-02-19] MEDS: DOCUSATE SODIUM 100 MG CAPSULE (FP) PO SCH (09:47)
[2024-02-20] MEDS: SUVOREXANT 10 MG TABLET PO PRN (21:07)
[2024-02-21] MEDS: DEXTROAMPHETAMINE/AMPHETAMINE 10 MG CAP.ER.24H PO SCH (09:30)
[2024-02-21] MEDS: clonazePAM 1 MG ODT TABLETS SL SCH (20:29)
[2024-02-23] MEDS: SUVOREXANT 10 MG TABLET PO PRN (21:04)
[2024-02-24] MEDS: clonazePAM 0.5 MG ODT TABLETS SL SCH (06:59)
[2024-02-26 06:56] VITALS: BP 105/77; PULSE 98; RESP 16; TEMP 96.6
== END 2024-02-26 10:15 | disposition home or self-care (01) | DRG 772 ==
LOC: YASAS 14:53 → Y5N 18:14
PROVIDERS: ADMIT Allergy & Immunology; ATTEND Psychiatry & Neurology Pain Medicine
PROC: HZ42ZZZ Group Counseling for Substance Abuse Treatment, Cognitive-Behavioral (ICD-10-PCS; principal; 2024-01-30)
DX: F11.20 Opioid dependence, uncomplicated (principal); F14.20 Cocaine dependence, uncomplicated; F13.20 Sedative, hypnotic or anxiolytic dependence, uncomplicated; F12.20 Cannabis dependence, uncomplicated; F17.210 Nicotine dependence, cigarettes, uncomplicated; F19.282 Other psychoactive substance dependence with psychoactive substance-induced sleep disorder; F32.A Depression, unspecified; F41.9 Anxiety disorder, unspecified; F90.9 Attention-deficit hyperactivity disorder, unspecified type; G40.909 Epilepsy, unspecified, not intractable, without status epilepticus; M54.50 Low back pain, unspecified; G89.29 Other chronic pain; N39.0 Urinary tract infection, site not specified; I25.2 Old myocardial infarction; Z62.810 Personal history of physical and sexual abuse in childhood; Z63.9 Problem related to primary support group, unspecified; Z59.02 Unsheltered homelessness
CPT/HCPCS: 36415; 80053; 80305; 81003; 85027; 86780; 87811

== ENCOUNTER 2024-05-19 15:51 | Inpatient (IN) | payer OTHER ==
[2024-05-19 16:40] VITALS: BMI 27.7
[2024-05-19] MEDS ORDERED: POLYETHYLENE GLYCOL (HEALTHYLAX) 3350 17 GM PACKET PO PRN (19:17)
[2024-05-19] MEDS ORDERED: NALOXONE (NARCAN) HCL 4 MG/0.1 ML SPRAY NS PRN (19:17)
[2024-05-19] MEDS ORDERED: guaiFENesin 600 MG TABLET.ER (FP) PO PRN (19:17)
[2024-05-19] MEDS ORDERED: IBUPROFEN 400 MG TABLET (FP) PO PRN (19:17)
[2024-05-19] MEDS ORDERED: BENZOCAINE/MENTHOL (CHLORASEPTIC ) LOZENGE MM PRN (19:17)
[2024-05-19] MEDS ORDERED: BENZONATATE 200 MG CAPSULE PO PRN (19:17)
[2024-05-19] MEDS ORDERED: MAGNESIUM HYDROX 2400MG/30ML ORAL SUSPENSION 30 ML CUP PO PRN (19:17)
[2024-05-19] MEDS ORDERED: MAG HYDROX/AL HYDROX/SIMETH 30 ML UNIT-DOSE CUP PO PRN (19:17)
[2024-05-19] MEDS ORDERED: LOPERAMIDE HCL 2 MG CAPSULE PO PRN (19:17)
[2024-05-19] MEDS ORDERED: DICYCLOMINE HCL 10 MG CAPSULE PO PRN (19:17)
[2024-05-19] MEDS ORDERED: ACETAMINOPHEN 325 MG TABLET (FP) PO PRN (19:17)
[2024-05-19] MEDS ORDERED: ONDANSETRON *ODT* 4 MG TABLET SL PRN (19:17)
[2024-05-19] MEDS ORDERED: BISMUTH SUBSALICYLATE 524 MG/30 ML PO PRN (19:17)
[2024-05-19] MEDS ORDERED: NALOXONE HCL 0.4 MG/ML VIAL IM PRN (19:17)
[2024-05-19] MEDS: TRIMETHOBENZAMIDE HCL 200MG/2ML INJ IM ONE (22:10)
[2024-05-19] MEDS: MELATONIN 5 MG TABLETS PO SCH (22:24)
[2024-05-19] MEDS: METHOCARBAMOL 500 MG TABLET PO PRN (22:24)
[2024-05-19] MEDS: THIAMINE 100 MG TABLET PO SCH (22:24)
[2024-05-19] MEDS: GABAPENTIN 300 MG CAPSULE PO SCH (22:24)
[2024-05-19] MEDS: hydrOXYzine PAMOATE 25 MG CAPSULE (FP) PO PRN (22:24)
[2024-05-19] MEDS: diazePAM 5 MG TABLET PO SCH (22:28)
[2024-05-20] MEDS ORDERED: methaDONE HCL 10 MG TABLET PO SCH (09:00)
[2024-05-20] MEDS: PRENATAL VITAMINS W/ FOLIC ACID TABLET (FP) PO SCH (10:15)
[2024-05-20 11:40] LABS: HEMATOCRIT 37.4 % (35.4-49); HEMOGLOBIN 13.1 GM/dL (11.7-16.9); MCH 29.5 pg (25.7-33.7); MEAN CELL VOLUME 84.4 fl (80-96); PLATELET COUNT 190 10^3/uL (134-434); RBC 4.43 M/mm3 (4.00-5.60); RDW 13.1 % (11.9-15.9); WHITE BLOOD COUNT 4.9 K/mm3 (4.0-10.0)
[2024-05-20 11:50] LABS: CHLORIDE 108 mmol/L (98-107); POTASSIUM 3.7 mmol/L (3.5-5.1); SODIUM 141 mmol/L (136-145)
[2024-05-20 11:58] LABS: CALCIUM 8.6 mg/dL (8.5-10.1); GLUCOSE,RANDOM 99 mg/dL (74-106)
[2024-05-20 11:59] LABS: ALBUMIN 3.4 g/dl (3.4-5.0); ANION GAP 6 mmol/L (4-13); BLOOD UREA NITROGEN 14.3 mg/dL (7-18); CO2 28 mmol/L (21-32)
[2024-05-20 12:01] LABS: CREATININE 0.7 mg/dL (0.55-1.3); SGPT/ALT 27 U/L (13-61)
[2024-05-20 12:02] LABS: SGOT/AST 24 U/L (15-37)
[2024-05-20 12:03] LABS: BILIRUBIN,TOTAL 0.4 mg/dL (0.2-1); TOT PROT 6.6 g/dl (6.4-8.2)
[2024-05-20 12:04] LABS: ALK PHOS 64 U/L (45-117)
[2024-05-20] MEDS: diazePAM 5 MG TABLET PO PRN (13:46)
[2024-05-20] MEDS: traZODone HCL 50 MG TABLET (FP) PO SCH (22:27)
[2024-05-21] MEDS: diazePAM 5 MG TABLET PO SCH (05:31)
[2024-05-21] MEDS: FLUoxetine HCL 20 MG CAPSULE PO SCH (09:32)
[2024-05-22] MEDS: diazePAM 5 MG TABLET PO SCH (05:39)
[2024-05-22] MEDS: NICOTINE POLACRILEX 4 MG GUM BUC PRN (08:37)
[2024-05-22] MEDS: IBUPROFEN 600 MG TABLET (FP) PO PRN (19:37)
[2024-05-22] MEDS: diazePAM 5 MG TABLET PO ONE (23:22)
[2024-05-23] MEDS: diazePAM 5 MG TABLET PO ONE (05:42)
[2024-05-23] MEDS: diazePAM 5 MG TABLET PO SCH (10:41)
[2024-05-25 09:48] VITALS: BP 119/67; PULSE 87; RESP 18; TEMP 97.8
== END 2024-05-25 09:38 | disposition home or self-care (01) | DRG 773 ==
LOC: YASAS 15:51 → Y3N 21:52
PROVIDERS: ADMIT Allergy & Immunology; ATTEND Surgery
PROC: HZ2ZZZZ Detoxification Services for Substance Abuse Treatment (ICD-10-PCS; principal; 2024-05-19)
DX: F10.230 Alcohol dependence with withdrawal, uncomplicated (principal); F11.20 Opioid dependence, uncomplicated; F14.20 Cocaine dependence, uncomplicated; F12.20 Cannabis dependence, uncomplicated; F17.210 Nicotine dependence, cigarettes, uncomplicated; F90.9 Attention-deficit hyperactivity disorder, unspecified type; M54.59 Other low back pain; G89.29 Other chronic pain; G47.00 Insomnia, unspecified; B19.20 Unspecified viral hepatitis C without hepatic coma; I25.2 Old myocardial infarction; Z86.69 Personal history of other diseases of the nervous system and sense organs; Z86.59 Personal history of other mental and behavioral disorders; Z91.51 Personal history of suicidal behavior; Z56.0 Unemployment, unspecified; Z59.00 Homelessness unspecified
CPT/HCPCS: 36415; 80053; 80305; 80307; 85027; 86780; 87522; 93005; 93010

== ENCOUNTER 2024-09-28 15:41 | Inpatient (IN) | payer OTHER ==
[2024-09-28] MEDS ORDERED: LOPERAMIDE HCL 2 MG CAPSULE PO PRN (16:20)
[2024-09-28] MEDS ORDERED: ONDANSETRON *ODT* 4 MG TABLET SL PRN (16:20)
[2024-09-28] MEDS ORDERED: NALOXONE (NARCAN) HCL 4 MG/0.1 ML SPRAY NS PRN (16:20)
[2024-09-28] MEDS ORDERED: NICOTINE POLACRILEX 2 MG GUM BUC PRN (16:20)
[2024-09-28] MEDS ORDERED: MAGNESIUM HYDROX 2400MG/30ML ORAL SUSPENSION 30 ML CUP PO PRN (16:20)
[2024-09-28] MEDS ORDERED: BENZOCAINE/MENTHOL (CHLORASEPTIC ) LOZENGE MM PRN (16:20)
[2024-09-28] MEDS ORDERED: BISMUTH SUBSALICYLATE 524 MG/30 ML PO PRN (16:20)
[2024-09-28] MEDS ORDERED: guaiFENesin 600 MG TABLET.ER (FP) PO PRN (16:20)
[2024-09-28] MEDS ORDERED: IBUPROFEN 400 MG TABLET (FP) PO PRN (16:20)
[2024-09-28] MEDS ORDERED: BENZONATATE 200 MG CAPSULE PO PRN (16:20)
[2024-09-28] MEDS ORDERED: POLYETHYLENE GLYCOL (HEALTHYLAX) 3350 17 GM PACKET PO PRN (16:20)
[2024-09-28] MEDS ORDERED: DICYCLOMINE HCL 10 MG CAPSULE PO PRN (16:20)
[2024-09-28] MEDS ORDERED: NICOTINE POLACRILEX 2 MG LOZENGE BC PRN (16:20)
[2024-09-28] MEDS ORDERED: MAG HYDROX/AL HYDROX/SIMETH 30 ML UNIT-DOSE CUP PO PRN (16:20)
[2024-09-28 16:29] VITALS: BMI 27.5
[2024-09-28] MEDS ORDERED: diazePAM 5 MG TABLET ONE (17:29)
[2024-09-28] MEDS: diazePAM 5 MG TABLET PO SCH (17:34)
[2024-09-28] MEDS: cloNIDine HCL 0.1 MG TABLET PO SCH (17:35)
[2024-09-28] MEDS ORDERED: IBUPROFEN 600 MG TABLET (FP) PO ONE (17:38)
[2024-09-28] MEDS: IBUPROFEN 600 MG TABLET (FP) PO PRN (17:39)
[2024-09-28] MEDS: THIAMINE 100 MG TABLET PO SCH (22:20)
[2024-09-28] MEDS: METHOCARBAMOL 500 MG TABLET PO PRN (22:20)
[2024-09-28] MEDS: MELATONIN 5 MG TABLETS PO SCH (22:20)
[2024-09-28] MEDS: ACETAMINOPHEN 325 MG TABLET (FP) PO PRN (22:21)
[2024-09-28] MEDS: GABAPENTIN 300 MG CAPSULE PO SCH (22:21)
[2024-09-28] MEDS: MIRTAZAPINE 15 MG TABLET (FP) PO SCH (22:21)
[2024-09-29] MEDS ORDERED: methaDONE HCL 10 MG TABLET PO SCH (06:00)
[2024-09-29] MEDS: NICOTINE 21 MG/24 HOURS TOPICAL PATCH TD SCH (09:35)
[2024-09-29] MEDS: PRENATAL VITAMINS W/ FOLIC ACID TABLET (FP) PO SCH (09:35)
[2024-09-29] MEDS: methaDONE HCL 10 MG TABLET PO ONE (09:41)
[2024-09-29] MEDS: hydrOXYzine PAMOATE 25 MG CAPSULE (FP) PO PRN (17:00)
[2024-09-29] MEDS: busPIRone HCL 5 MG TABLET PO SCH (22:43)
[2024-09-30] MEDS: diazePAM 5 MG TABLET PO SCH (05:39)
[2024-09-30] MEDS: FLUoxetine HCL 20 MG CAPSULE PO SCH (10:05)
[2024-09-30] MEDS: diazePAM 5 MG TABLET PO PRN (17:55)
[2024-09-30] MEDS: cloNIDine HCL 0.1 MG TABLET PO PRN (17:55)
[2024-10-01] MEDS: diazePAM 5 MG TABLET PO SCH (05:48)
[2024-10-01] MEDS: methaDONE HCL 10 MG TABLET PO ONE (09:23)
[2024-10-01] MEDS ORDERED: HYDROCORTISONE 0.5% TOPICAL CREAM 30 GM TUBE TP PRN (10:37)
[2024-10-01 12:07] LABS: HEMATOCRIT 36.7 % (35.4-49); HEMOGLOBIN 12.6 GM/dL (11.7-16.9); MCH 29.8 pg (25.7-33.7); MCHC 34.4 g/dl (32.0-35.9); MEAN CELL VOLUME 86.5 fl (80-96); MEAN PLT VOLUME 8.8 fl (7.5-11.1); PLATELET COUNT 233 10^3/uL (134-434); RBC 4.24 M/mm3 (4.00-5.60); RDW 12.9 % (11.9-15.9); WHITE BLOOD COUNT 5.1 K/mm3 (4.0-10.0)
[2024-10-01 12:38] LABS: POTASSIUM 4.1 mmol/L (3.5-5.1)
[2024-10-01 12:43] LABS: CALCIUM 8.9 mg/dL (8.5-10.1)
[2024-10-01 12:44] LABS: ALBUMIN 3.2 g/dl (3.4-5.0); BLOOD UREA NITROGEN 15.1 mg/dL (7-18)
[2024-10-01 12:45] LABS: CREATININE 0.8 mg/dL (0.55-1.3)
[2024-10-01 12:47] LABS: BILIRUBIN,TOTAL 0.1 mg/dL (0.2-1); TOT PROT 6.4 g/dl (6.4-8.2)
[2024-10-02] MEDS: diazePAM 5 MG TABLET PO ONE (05:48)
[2024-10-02 09:04] VITALS: BP 122/86; PULSE 70; RESP 16; TEMP 97.7
[2024-10-02] MEDS: methaDONE HCL 10 MG TABLET PO ONE (09:22)
[2024-10-02] MEDS: NALOXONE (NYS OPIOID OVERDOSE PROGRAM) 4 MG/0.1 ML SPRAY NS SCH (10:02)
[2024-10-03] MEDS ORDERED: methaDONE HCL 10 MG TABLET PO ONE (10:00)
== END 2024-10-02 12:25 | disposition other institution (70) | DRG 773 ==
LOC: YASAS 15:41 → Y6N 17:20
PROVIDERS: ADMIT Allergy & Immunology; ATTEND Surgery
PROC: HZ2ZZZZ Detoxification Services for Substance Abuse Treatment (ICD-10-PCS; principal; 2024-09-28)
DX: F11.23 Opioid dependence with withdrawal (principal); F13.230 Sedative, hypnotic or anxiolytic dependence with withdrawal, uncomplicated; F14.20 Cocaine dependence, uncomplicated; F17.210 Nicotine dependence, cigarettes, uncomplicated; F19.982 Other psychoactive substance use, unspecified with psychoactive substance-induced sleep disorder; F19.980 Other psychoactive substance use, unspecified with psychoactive substance-induced anxiety disorder; F90.9 Attention-deficit hyperactivity disorder, unspecified type; F33.1 Major depressive disorder, recurrent, moderate; R30.0 Dysuria; G47.00 Insomnia, unspecified; Z91.51 Personal history of suicidal behavior; Z56.0 Unemployment, unspecified; Z59.00 Homelessness unspecified
CPT/HCPCS: 36415; 80053; 85027; 86780; 93005; 93010

== ENCOUNTER 2024-10-02 12:49 | Inpatient (IN) | payer OTHER ==
[2024-10-02] MEDS ORDERED: NALOXONE HCL 0.4 MG/ML VIAL IVPUSH PRN (14:42)
[2024-10-02] MEDS ORDERED: BENZONATATE 200 MG CAPSULE PO PRN (14:42)
[2024-10-02] MEDS ORDERED: NALOXONE (NARCAN) HCL 4 MG/0.1 ML SPRAY NS PRN (14:42)
[2024-10-02] MEDS ORDERED: guaiFENesin 600 MG TABLET.ER (FP) PO PRN (14:42)
[2024-10-02] MEDS: hydrOXYzine PAMOATE 25 MG CAPSULE (FP) PO PRN (15:50)
[2024-10-02] MEDS: IBUPROFEN 600 MG TABLET (FP) PO PRN (18:07)
[2024-10-02] MEDS: METHOCARBAMOL 500 MG TABLET PO PRN (18:07)
[2024-10-02] MEDS: clonazePAM 1 MG ODT TABLETS SL ONE (18:08)
[2024-10-02] MEDS: THIAMINE 100 MG TABLET PO SCH (21:33)
[2024-10-02] MEDS: MELATONIN 5 MG TABLETS PO SCH (21:33)
[2024-10-02] MEDS ORDERED: busPIRone HCL 5 MG TABLET PO SCH (22:00)
[2024-10-02] MEDS ORDERED: clonazePAM 1 MG ODT TABLETS SL SCH (22:00)
[2024-10-03] MEDS: methaDONE HCL 40 MG DISPERSABLE TABLET PO SCH (07:04)
[2024-10-03] MEDS: DEXTROAMPHETAMINE/AMPHETAMINE 20 MG CAP.ER.24H PO SCH (09:20)
[2024-10-03] MEDS: PRENATAL VITAMINS W/ FOLIC ACID TABLET (FP) PO SCH (09:20)
[2024-10-03] MEDS: clonazePAM 1 MG ODT TABLETS SL SCH (09:20)
[2024-10-03] MEDS: FLUoxetine HCL 20 MG CAPSULE PO SCH (09:20)
[2024-10-03] MEDS: GABAPENTIN 400 MG CAPSULE PO SCH (13:33)
[2024-10-04] MEDS: POLYETHYLENE GLYCOL (HEALTHYLAX) 3350 17 GM PACKET PO PRN (17:30)
[2024-10-04] MEDS: GABAPENTIN 300 MG CAPSULE PO SCH (21:16)
[2024-10-06] MEDS: MAGNESIUM HYDROX 2400MG/30ML ORAL SUSPENSION 30 ML CUP PO PRN (17:22)
[2024-10-07] MEDS ORDERED: methaDONE HCL 40 MG DISPERSABLE TABLET PO SCH (06:00)
[2024-10-07] MEDS: ACETAMINOPHEN 325 MG TABLET (FP) PO PRN (13:09)
[2024-10-09 20:43] LABS: URINE APPEARANCE CLEAR; URINE BILIRUBIN NEGATIVE (NEGATIVE); URINE COLOR YELLOW; URINE GLUCOSE (UA) NEGATIVE (NEGATIVE); URINE KETONE NEGATIVE (NEGATIVE); URINE LEUK ESTERASE NEGATIVE (NEGATIVE); URINE NITRITE NEGATIVE (NEGATIVE); URINE PROTEIN NEGATIVE (NEGATIVE); URINE UROBILINOGEN 0.2 mg/dL (0.2-1.0)
[2024-10-12] MEDS: hydrOXYzine PAMOATE 25 MG CAPSULE (FP) PO PRN (21:07)
[2024-10-14] MEDS: MAG HYDROX/AL HYDROX/SIMETH 30 ML UNIT-DOSE CUP PO PRN (19:09)
[2024-10-18] MEDS: SODIUM PHOSPHATE/NA BIPHOS 133 ML ENEMA RC ONE (17:27)
[2024-10-19] MEDS: BISACODYL 5 MG TABLET.DR (FP) PO ONE (14:05)
[2024-10-19] MEDS ORDERED: methaDONE HCL 40 MG DISPERSABLE TABLET PO SCH (14:26)
[2024-10-19] MEDS: LOPERAMIDE HCL 2 MG CAPSULE PO PRN (21:19)
[2024-10-23] MEDS: IBUPROFEN 400 MG TABLET (FP) PO PRN (17:13)
[2024-10-24] MEDS: P-EPHED 60MG/TRIPROLIDI 2.5MG TABLET PO PRN (09:10)
[2024-10-24] MEDS: BENZOCAINE/MENTHOL (CHLORASEPTIC ) LOZENGE MM PRN (21:42)
[2024-10-27] MEDS ORDERED: methaDONE HCL 40 MG DISPERSABLE TABLET PO SCH (06:00)
[2024-10-30] MEDS: BISACODYL 5 MG TABLET.DR (FP) PO PRN (09:40)
[2024-11-01 09:16] VITALS: RESP 18
[2024-11-03 06:35] VITALS: BP 103/65; PULSE 79; TEMP 97.7
[2024-11-03] MEDS: NALOXONE (NYS OPIOID OVERDOSE PROGRAM) 4 MG/0.1 ML SPRAY NS SCH (10:08)
== END 2024-11-03 13:00 | disposition home or self-care (01) | DRG 772 ==
LOC: YASAS 12:49 → Y3NR 12:51 → Y5N 10-03 17:25
PROVIDERS: ADMIT Psychiatry & Neurology Pain Medicine; ATTEND Family Medicine Addiction Medicine
PROC: HZ42ZZZ Group Counseling for Substance Abuse Treatment, Cognitive-Behavioral (ICD-10-PCS; principal; 2024-10-02)
DX: F11.20 Opioid dependence, uncomplicated (principal); F13.20 Sedative, hypnotic or anxiolytic dependence, uncomplicated; F14.20 Cocaine dependence, uncomplicated; F10.20 Alcohol dependence, uncomplicated; F17.210 Nicotine dependence, cigarettes, uncomplicated; F19.282 Other psychoactive substance dependence with psychoactive substance-induced sleep disorder; F19.24 Other psychoactive substance dependence with psychoactive substance-induced mood disorder; F90.9 Attention-deficit hyperactivity disorder, unspecified type; F32.A Depression, unspecified; U07.1 COVID-19; G47.00 Insomnia, unspecified; I10 Essential (primary) hypertension; R30.0 Dysuria; M54.50 Low back pain, unspecified; G89.29 Other chronic pain; Z86.19 Personal history of other infectious and parasitic diseases
CPT/HCPCS: 0241U-QW; 36415; 81003; 86803; 87491; 87522; 87591; 87661

== ENCOUNTER 2024-12-08 14:41 | Inpatient (IN) | payer OTHER ==
[2024-12-08 15:20] VITALS: BMI 29.8
[2024-12-08] MEDS ORDERED: NICOTINE POLACRILEX 2 MG GUM BUC PRN (15:40)
[2024-12-08] MEDS ORDERED: NALOXONE (NARCAN) HCL 4 MG/0.1 ML SPRAY NS PRN (15:40)
[2024-12-08] MEDS ORDERED: IBUPROFEN 400 MG TABLET (FP) PO PRN (15:40)
[2024-12-08] MEDS ORDERED: BENZOCAINE/MENTHOL (CHLORASEPTIC ) LOZENGE MM PRN (15:40)
[2024-12-08] MEDS ORDERED: LOPERAMIDE HCL 2 MG CAPSULE PO PRN (15:40)
[2024-12-08] MEDS ORDERED: guaiFENesin 600 MG TABLET.ER (FP) PO PRN (15:40)
[2024-12-08] MEDS ORDERED: BENZONATATE 200 MG CAPSULE PO PRN (15:40)
[2024-12-08] MEDS ORDERED: POLYETHYLENE GLYCOL (HEALTHYLAX) 3350 17 GM PACKET PO PRN (15:40)
[2024-12-08] MEDS ORDERED: NICOTINE POLACRILEX 2 MG LOZENGE BC PRN (15:40)
[2024-12-08] MEDS ORDERED: P-EPHED 60MG/TRIPROLIDI 2.5MG TABLET PO PRN (15:40)
[2024-12-08] MEDS: IBUPROFEN 600 MG TABLET (FP) PO PRN (18:13)
[2024-12-08] MEDS: clonazePAM 1 MG ODT TABLETS SL ONE (18:44)
[2024-12-08] MEDS: MELATONIN 5 MG TABLETS PO SCH (22:09)
[2024-12-08] MEDS: THIAMINE 100 MG TABLET PO SCH (22:09)
[2024-12-09] MEDS: TAMSULOSIN HCL 0.4 MG CAP PO SCH (07:47)
[2024-12-09] MEDS: methaDONE HCL 40 MG DISPERSABLE TABLET PO SCH (09:08)
[2024-12-09] MEDS: FLUoxetine HCL 20 MG CAPSULE PO SCH (09:46)
[2024-12-09] MEDS: clonazePAM 1 MG ODT TABLETS SL SCH (09:46)
[2024-12-09] MEDS: PRENATAL VITAMINS W/ FOLIC ACID TABLET (FP) PO SCH (09:47)
[2024-12-09 11:15] LABS: POTASSIUM 4.6 mmol/L (3.5-5.1)
[2024-12-09 11:17] LABS: HEMATOCRIT 36.4 % (35.4-49); HEMOGLOBIN 12.3 GM/dL (11.7-16.9); MCH 29.6 pg (25.7-33.7); MCHC 33.9 g/dl (32.0-35.9); MEAN CELL VOLUME 87.4 fl (80-96); MEAN PLT VOLUME 9.6 fl (7.5-11.1); PLATELET COUNT 205 10^3/uL (134-434); RBC 4.16 M/mm3 (4.00-5.60); RDW 13.3 % (11.9-15.9); WHITE BLOOD COUNT 4.3 K/mm3 (4.0-10.0)
[2024-12-09 11:18] LABS: CALCIUM 9.7 mg/dL (8.5-10.1)
[2024-12-09 11:19] LABS: ALBUMIN 3.3 g/dl (3.4-5.0); BLOOD UREA NITROGEN 16.8 mg/dL (7-18)
[2024-12-09 11:21] LABS: CREATININE 0.8 mg/dL (0.55-1.3)
[2024-12-09 11:23] LABS: BILIRUBIN,TOTAL 0.3 mg/dL (0.2-1)
[2024-12-09] MEDS: FLU VACCINE (FLULAVAL) PF 45 MCG/0.5 ML SYRINGE 2024-2025 IM ONE (12:45)
[2024-12-09] MEDS: GABAPENTIN 300 MG CAPSULE PO SCH (13:17)
[2024-12-09] MEDS ORDERED: hydrOXYzine PAMOATE 25 MG CAPSULE (FP) PO PRN (17:56)
[2024-12-09] MEDS: hydrOXYzine PAMOATE 25 MG CAPSULE (FP) PO ONE (18:07)
[2024-12-09] MEDS: SUVOREXANT 5 MG TABLET PO PRN (22:12)
[2024-12-10] MEDS: BISACODYL 5 MG TABLET.DR (FP) PO PRN (06:21)
[2024-12-10] MEDS: ACETAMINOPHEN 325 MG TABLET (FP) PO PRN (15:55)
[2024-12-10] MEDS: MAGNESIUM HYDROX 2400MG/30ML ORAL SUSPENSION 30 ML CUP PO PRN (15:55)
[2024-12-12] MEDS: MAG HYDROX/AL HYDROX/SIMETH 30 ML UNIT-DOSE CUP PO PRN (15:32)
[2024-12-12] MEDS: DOCUSATE SODIUM 100 MG CAPSULE (FP) PO PRN (20:24)
[2024-12-13 09:16] VITALS: RESP 18
[2024-12-14 06:39] VITALS: BP 131/76; PULSE 88; TEMP 97
== END 2024-12-14 11:03 | disposition home or self-care (01) | DRG 772 ==
LOC: YASAS 14:41 → Y3E 17:09 → Y3NR 17:17 → Y5N 12-10 11:23
PROVIDERS: ADMIT Psychiatry & Neurology Pain Medicine; ATTEND Psychiatry & Neurology Pain Medicine
PROC: HZ42ZZZ Group Counseling for Substance Abuse Treatment, Cognitive-Behavioral (ICD-10-PCS; principal; 2024-12-08)
DX: F11.20 Opioid dependence, uncomplicated (principal); F10.20 Alcohol dependence, uncomplicated; F14.20 Cocaine dependence, uncomplicated; F12.20 Cannabis dependence, uncomplicated; F17.210 Nicotine dependence, cigarettes, uncomplicated; F19.282 Other psychoactive substance dependence with psychoactive substance-induced sleep disorder; F19.280 Other psychoactive substance dependence with psychoactive substance-induced anxiety disorder; F19.24 Other psychoactive substance dependence with psychoactive substance-induced mood disorder; F41.9 Anxiety disorder, unspecified; F32.A Depression, unspecified; M54.50 Low back pain, unspecified; G89.29 Other chronic pain; N40.0 Benign prostatic hyperplasia without lower urinary tract symptoms; I25.2 Old myocardial infarction; Z86.69 Personal history of other diseases of the nervous system and sense organs; Z59.00 Homelessness unspecified
CPT/HCPCS: 36415; 80053; 80305; 80307; 85027; 86803; 87522; 90656; G0008

== ENCOUNTER 2025-01-05 12:57 | Inpatient (IN) | payer OTHER ==
[2025-01-05 13:17] VITALS: BMI 28.7
[2025-01-05] MEDS ORDERED: NALOXONE (NARCAN) HCL 4 MG/0.1 ML SPRAY NS PRN (13:58)
[2025-01-05] MEDS ORDERED: DICYCLOMINE HCL 10 MG CAPSULE PO PRN (13:58)
[2025-01-05] MEDS ORDERED: IBUPROFEN 400 MG TABLET (FP) PO PRN (13:58)
[2025-01-05] MEDS ORDERED: BENZONATATE 200 MG CAPSULE PO PRN (13:58)
[2025-01-05] MEDS ORDERED: POLYETHYLENE GLYCOL (HEALTHYLAX) 3350 17 GM PACKET PO PRN (13:58)
[2025-01-05] MEDS ORDERED: BENZOCAINE/MENTHOL (CHLORASEPTIC ) LOZENGE MM PRN (13:58)
[2025-01-05] MEDS ORDERED: MAGNESIUM HYDROX 2400MG/30ML ORAL SUSPENSION 30 ML CUP PO PRN (13:58)
[2025-01-05] MEDS ORDERED: ONDANSETRON *ODT* 4 MG TABLET SL PRN (13:58)
[2025-01-05] MEDS ORDERED: NICOTINE POLACRILEX 2 MG GUM BUC PRN (13:58)
[2025-01-05] MEDS ORDERED: MAG HYDROX/AL HYDROX/SIMETH 30 ML UNIT-DOSE CUP PO PRN (13:58)
[2025-01-05] MEDS ORDERED: NICOTINE POLACRILEX 2 MG LOZENGE BC PRN (13:58)
[2025-01-05] MEDS ORDERED: LOPERAMIDE HCL 2 MG CAPSULE PO PRN (13:58)
[2025-01-05] MEDS ORDERED: guaiFENesin 600 MG TABLET.ER (FP) PO PRN (13:58)
[2025-01-05] MEDS ORDERED: ACETAMINOPHEN 325 MG TABLET (FP) PO PRN (13:58)
[2025-01-05] MEDS ORDERED: BISMUTH SUBSALICYLATE 262 MG/15 ML BTL PO PRN (13:58)
[2025-01-05] MEDS: METHOCARBAMOL 500 MG TABLET PO PRN (15:53)
[2025-01-05] MEDS: clonazePAM 1 MG ODT TABLETS SL ONE (15:53)
[2025-01-05] MEDS: GABAPENTIN 300 MG CAPSULE PO SCH (15:53)
[2025-01-05] MEDS ORDERED: BISACODYL 5 MG TABLET.DR (FP) PO PRN (18:53)
[2025-01-05] MEDS: IBUPROFEN 600 MG TABLET (FP) PO PRN (19:37)
[2025-01-05] MEDS: THIAMINE 100 MG TABLET PO SCH (22:08)
[2025-01-05] MEDS: diazePAM 5 MG TABLET PO SCH (22:08)
[2025-01-05] MEDS: MELATONIN 5 MG TABLETS PO SCH (22:08)
[2025-01-06] MEDS: NITROFURANTOIN MONOHYD/M-CRYST 100 MG CAPSULE PO SCH (00:26)
[2025-01-06] MEDS: hydrOXYzine PAMOATE 25 MG CAPSULE (FP) PO PRN (00:40)
[2025-01-06] MEDS: methaDONE HCL 40 MG DISPERSABLE TABLET PO SCH (05:48)
[2025-01-06] MEDS: TAMSULOSIN HCL 0.4 MG CAP PO SCH (07:47)
[2025-01-06] MEDS: FLUoxetine HCL 20 MG CAPSULE PO SCH (10:12)
[2025-01-06] MEDS: PRENATAL VITAMINS W/ FOLIC ACID TABLET (FP) PO SCH (10:12)
[2025-01-06 10:58] LABS: HEMATOCRIT 35.2 % (40.1-51.0); HEMOGLOBIN 11.8 g/dL (13.7-17.5); MCHC 33.5 g/dl (32.3-36.5); MEAN CELL VOLUME 85.6 fl (79.0-92.2); MEAN PLT VOLUME 11.8 fl (9.4-12.4); PLATELET COUNT # 139 x10^3/uL (163-337); RDW 12.2 % (12.1-15.9)
[2025-01-06 11:04] LABS: POTASSIUM 3.5 mmol/L (3.5-5.1)
[2025-01-06 11:14] LABS: ALBUMIN 3.9 g/dl (3.4-5.0); BLOOD UREA NITROGEN 19.6 mg/dL (7-18)
[2025-01-06 11:17] LABS: CREATININE 0.9 mg/dL (0.55-1.3)
[2025-01-06 11:18] LABS: BILIRUBIN,TOTAL 0.7 mg/dL (0.2-1)
[2025-01-06 11:19] LABS: TOT PROT 7.4 g/dl (6.4-8.2)
[2025-01-06] MEDS: DOCUSATE SODIUM 100 MG CAPSULE (FP) PO PRN (11:43)
[2025-01-06] MEDS: diazePAM 5 MG TABLET PO PRN (13:03)
[2025-01-06] MEDS: SUVOREXANT 10 MG TABLET PO PRN (22:18)
[2025-01-07] MEDS: diazePAM 5 MG TABLET PO SCH (05:44)
[2025-01-07] MEDS: diazePAM 5 MG TABLET PO PRN (22:20)
[2025-01-07] MEDS: ACAMPROSATE CALCIUM 333 MG TABLET.DR PO SCH (22:20)
[2025-01-08] MEDS: diazePAM 5 MG TABLET PO ONE (05:42)
[2025-01-08] MEDS: hydrOXYzine PAMOATE 50 MG CAPSULE (FP) PO PRN (20:46)
[2025-01-09 06:35] VITALS: BP 102/56; PULSE 56; RESP 17; TEMP 96.9
== END 2025-01-09 09:00 | disposition home or self-care (01) | DRG 773 ==
LOC: YASAS 12:57 → Y6N 15:13
PROVIDERS: ADMIT Allergy & Immunology; ATTEND Allergy & Immunology
PROC: HZ2ZZZZ Detoxification Services for Substance Abuse Treatment (ICD-10-PCS; principal; 2025-01-05)
DX: F10.230 Alcohol dependence with withdrawal, uncomplicated (principal); F11.20 Opioid dependence, uncomplicated; F14.20 Cocaine dependence, uncomplicated; F13.20 Sedative, hypnotic or anxiolytic dependence, uncomplicated; F12.20 Cannabis dependence, uncomplicated; F17.210 Nicotine dependence, cigarettes, uncomplicated; F19.282 Other psychoactive substance dependence with psychoactive substance-induced sleep disorder; F19.280 Other psychoactive substance dependence with psychoactive substance-induced anxiety disorder; F19.24 Other psychoactive substance dependence with psychoactive substance-induced mood disorder
CPT/HCPCS: 36415; 80053; 80305; 80307; 83036; 85027; 86780

== ENCOUNTER 2025-02-23 18:18 | Inpatient (IN) | payer OTHER ==
[2025-02-23 19:03] VITALS: BMI 32.9
[2025-02-23] MEDS ORDERED: NICOTINE POLACRILEX 2 MG GUM BUC PRN (20:08)
[2025-02-23] MEDS ORDERED: guaiFENesin 600 MG TABLET.ER (FP) PO PRN (20:08)
[2025-02-23] MEDS ORDERED: LOPERAMIDE HCL 2 MG CAPSULE PO PRN (20:08)
[2025-02-23] MEDS ORDERED: NICOTINE POLACRILEX 2 MG LOZENGE BC PRN (20:08)
[2025-02-23] MEDS ORDERED: POLYETHYLENE GLYCOL (HEALTHYLAX) 3350 17 GM PACKET PO PRN (20:08)
[2025-02-23] MEDS ORDERED: BENZONATATE 200 MG CAPSULE PO PRN (20:08)
[2025-02-23] MEDS ORDERED: MAGNESIUM HYDROX 2400MG/30ML ORAL SUSPENSION 30 ML CUP PO PRN (20:08)
[2025-02-23] MEDS ORDERED: BENZOCAINE/MENTHOL (CHLORASEPTIC ) LOZENGE MM PRN (20:08)
[2025-02-23] MEDS ORDERED: NALOXONE (NARCAN) HCL 4 MG/0.1 ML SPRAY NS PRN (20:08)
[2025-02-23] MEDS: MELATONIN 5 MG TABLETS PO SCH (22:08)
[2025-02-23] MEDS: IBUPROFEN 600 MG TABLET (FP) PO PRN (22:08)
[2025-02-23] MEDS: THIAMINE 100 MG TABLET PO SCH (22:08)
[2025-02-23] MEDS: levETIRAcetam 500 MG TABLET (FP) PO SCH (22:09)
[2025-02-24] MEDS ORDERED: methaDONE HCL 40 MG DISPERSABLE TABLET PO SCH (08:59)
[2025-02-24] MEDS: methaDONE 80 MG, methaDONE 20 MG PO SCH (09:23)
[2025-02-24] MEDS: PRENATAL VITAMINS W/ FOLIC ACID TABLET (FP) PO SCH (09:25)
[2025-02-24] MEDS: methaDONE HCL 40 MG DISPERSABLE TABLET PO SCH (09:48)
[2025-02-24 11:54] LABS: HEMOGLOBIN 11.4 g/dL (13.7-17.5); MCHC 32.6 g/dl (32.3-36.5); MEAN CELL VOLUME 88.2 fl (79.0-92.2); MEAN PLT VOLUME 11.1 fl (9.4-12.4); PLATELET COUNT 157 x10^3/uL (163-337); RDW 12.9 % (12.1-15.9)
[2025-02-24] MEDS: FERROUS SO4 325 MG TABLET (FP) PO SCH (13:15)
[2025-02-24 13:18] LABS: CHLORIDE 105 mmol/L (98-107); POTASSIUM 3.3 mmol/L (3.5-5.1); SODIUM 140 mmol/L (136-145)
[2025-02-24 13:28] LABS: CALCIUM 9.2 mg/dL (8.5-10.1)
[2025-02-24 13:29] LABS: ALBUMIN 3.1 g/dl (3.4-5.0); ANION GAP 7 mmol/L (4-13); BLOOD UREA NITROGEN 16.5 mg/dL (7-18); CO2 29 mmol/L (21-32); GLUCOSE,RANDOM 122 mg/dL (74-106)
[2025-02-24 13:31] LABS: SGOT/AST 37 U/L (15-37); SGPT/ALT 55 U/L (13-61)
[2025-02-24 13:32] LABS: CREATININE 0.8 mg/dL (0.55-1.3)
[2025-02-24 13:33] LABS: BILIRUBIN,TOTAL 0.4 mg/dL (0.2-1); TOT PROT 6.1 g/dl (6.4-8.2)
[2025-02-24 13:34] LABS: ALK PHOS 87 U/L (45-117)
[2025-02-24 15:05] LABS: EPI CELLS 20 /uL (0-25.1); HYALINE CASTS 16 /uL (0-3.1); URINE APPEARANCE CLOUDY; URINE BACTERIA 1129 /uL (0-1359); URINE BILIRUBIN 1+ (NEGATIVE); URINE COLOR DK YELLOW; URINE GLUCOSE (UA) NEGATIVE (NEGATIVE); URINE KETONE TRACE (NEGATIVE); URINE LEUK ESTERASE 1+ (NEGATIVE); URINE NITRITE NEGATIVE (NEGATIVE); URINE PROTEIN 1+ (NEGATIVE); URINE RBC 4 /uL (0-23.9); URINE WBC 170 /uL (0-25.8)
[2025-02-24] MEDS ORDERED: BISMUTH SUBSALICYLATE 524 MG/30 ML PO PRN (16:43)
[2025-02-24] MEDS ORDERED: DICYCLOMINE HCL 10 MG CAPSULE PO PRN (16:43)
[2025-02-24] MEDS ORDERED: ONDANSETRON *ODT* 4 MG TABLET SL PRN (16:43)
[2025-02-24] MEDS: clonazePAM 1 MG ODT TABLETS SL ONE (17:03)
[2025-02-24] MEDS: BACITRACIN 0.9 GM PACKET TP SCH (21:27)
[2025-02-24] MEDS: GABAPENTIN 300 MG CAPSULE PO SCH (21:28)
[2025-02-24] MEDS: clonazePAM 1 MG ODT TABLETS SL SCH (21:28)
[2025-02-25] MEDS ORDERED: methaDONE HCL 40 MG DISPERSABLE TABLET PO SCH (09:00)
[2025-02-25] MEDS: POTASSIUM CHLORIDE TABS 20 MEQ TABLET.ER (FP) PO SCH (10:10)
[2025-02-25] MEDS: DEXTROAMPHETAMINE/AMPHETAMINE 20 MG CAP.ER.24H PO SCH (10:11)
[2025-02-25] MEDS: TAMSULOSIN HCL 0.4 MG CAP PO SCH (10:11)
[2025-02-25] MEDS: clonazePAM 0.5 MG ODT TABLETS SL SCH (10:12)
[2025-02-25] MEDS: METHOCARBAMOL 500 MG TABLET PO PRN (13:10)
[2025-02-25] MEDS: hydrOXYzine PAMOATE 25 MG CAPSULE (FP) PO PRN (17:54)
[2025-02-26] MEDS ORDERED: methaDONE HCL 40 MG DISPERSABLE TABLET PO SCH (06:00)
[2025-03-01] MEDS: clonazePAM 1 MG ODT TABLETS SL SCH (09:31)
[2025-03-01] MEDS: MAG HYDROX/AL HYDROX/SIMETH 30 ML UNIT-DOSE CUP PO PRN (14:29)
[2025-03-02] MEDS ORDERED: methaDONE HCL 40 MG DISPERSABLE TABLET PO SCH (08:16)
[2025-03-02] MEDS: levETIRAcetam 250 MG TABLET PO SCH (21:12)
[2025-03-03] MEDS ORDERED: methaDONE HCL 40 MG DISPERSABLE TABLET PO SCH (06:00)
[2025-03-04] MEDS: clonazePAM 1 MG ODT TABLETS SL SCH (09:53)
[2025-03-06] MEDS: FAMOTIDINE 20 MG TABLET PO PRN (09:59)
[2025-03-06] MEDS: levETIRAcetam 250 MG TABLET PO SCH (09:59)
[2025-03-06] MEDS: ACETAMINOPHEN 325 MG TABLET (FP) PO PRN (13:48)
[2025-03-06] MEDS: levETIRAcetam 250 MG TABLET PO ONE (21:25)
[2025-03-07] MEDS: IBUPROFEN 400 MG TABLET (FP) PO PRN (14:20)
[2025-03-08] MEDS: SENNOSIDES 8.6MG TABLET (FP) PO PRN (13:19)
[2025-03-08] MEDS: GABAPENTIN 300 MG CAPSULE PO SCH (21:52)
[2025-03-10] MEDS: clonazePAM 1 MG ODT TABLETS SL SCH (21:24)
[2025-03-11] MEDS: SIMETHICONE 80 MG TAB.CHEW (FP) PO PRN (17:51)
[2025-03-12] MEDS: BISACODYL 5 MG TABLET.DR (FP) PO PRN (21:15)
[2025-03-12] MEDS: SULFAMETHOXAZOLE/TRIMETHOPRIM 800MG/160MG D.S. TABLET PO SCH (21:17)
[2025-03-12] MEDS: DOCUSATE SODIUM 100 MG CAPSULE (FP) PO SCH (21:17)
[2025-03-12 21:19] LABS: EPI CELLS 15 /uL (0-25.1); HYALINE CASTS 1 /uL (0-3.1); URINE APPEARANCE CLEAR; URINE BACTERIA 328 /uL (0-1359); URINE BILIRUBIN NEGATIVE (NEGATIVE); URINE COLOR YELLOW; URINE GLUCOSE (UA) NEGATIVE (NEGATIVE); URINE KETONE NEGATIVE (NEGATIVE); URINE LEUK ESTERASE TRACE (NEGATIVE); URINE NITRITE NEGATIVE (NEGATIVE); URINE PROTEIN NEGATIVE (NEGATIVE); URINE RBC 3 /uL (0-23.9); URINE UROBILINOGEN 0.2 mg/dL (0.2-1.0); URINE WBC 49 /uL (0-25.8)
[2025-03-16 08:46] VITALS: BP 101/73; PULSE 105; RESP 18; TEMP 97.6
== END 2025-03-16 09:18 | disposition home or self-care (01) | DRG 772 ==
LOC: YASAS 18:18 → Y3NR 20:56 → Y3E 02-24 09:49
PROVIDERS: ADMIT Psychiatry & Neurology Pain Medicine; ATTEND Psychiatry & Neurology Pain Medicine
PROC: HZ42ZZZ Group Counseling for Substance Abuse Treatment, Cognitive-Behavioral (ICD-10-PCS; principal; 2025-02-23)
DX: F10.20 Alcohol dependence, uncomplicated (principal); F14.20 Cocaine dependence, uncomplicated; F11.20 Opioid dependence, uncomplicated; F13.20 Sedative, hypnotic or anxiolytic dependence, uncomplicated; F12.20 Cannabis dependence, uncomplicated; F17.210 Nicotine dependence, cigarettes, uncomplicated; F19.24 Other psychoactive substance dependence with psychoactive substance-induced mood disorder; F32.A Depression, unspecified; F41.9 Anxiety disorder, unspecified; D64.9 Anemia, unspecified; M54.50 Low back pain, unspecified; G89.29 Other chronic pain; N40.0 Benign prostatic hyperplasia without lower urinary tract symptoms; N39.0 Urinary tract infection, site not specified; I25.2 Old myocardial infarction; Z86.19 Personal history of other infectious and parasitic diseases
CPT/HCPCS: 36415; 80053; 80305; 80307; 81003; 82962; 83036; 84132; 85027; 86780; 87811; 93005; 93010

== ENCOUNTER 2025-04-23 15:14 | Inpatient (IN) | payer OTHER ==
[2025-04-23 15:35] VITALS: BMI 27.8
[2025-04-23] MEDS ORDERED: guaiFENesin 600 MG TABLET.ER (FP) PO PRN (17:04)
[2025-04-23] MEDS ORDERED: MAGNESIUM HYDROX 2400MG/30ML ORAL SUSPENSION 30 ML CUP PO PRN (17:04)
[2025-04-23] MEDS ORDERED: BENZOCAINE/MENTHOL (CHLORASEPTIC ) LOZENGE MM PRN (17:04)
[2025-04-23] MEDS ORDERED: LOPERAMIDE HCL 2 MG CAPSULE PO PRN (17:04)
[2025-04-23] MEDS ORDERED: NALOXONE (NARCAN) HCL 4 MG/0.1 ML SPRAY NS PRN (17:04)
[2025-04-23] MEDS ORDERED: BENZONATATE 200 MG CAPSULE PO PRN (17:04)
[2025-04-23] MEDS ORDERED: MAG HYDROX/AL HYDROX/SIMETH 30 ML UNIT-DOSE CUP PO PRN (17:04)
[2025-04-23] MEDS ORDERED: hydrOXYzine PAMOATE 25 MG CAPSULE (FP) PO ONE (17:55)
[2025-04-23] MEDS: hydrOXYzine PAMOATE 25 MG CAPSULE (FP) PO PRN (17:56)
[2025-04-23] MEDS: ONDANSETRON *ODT* 4 MG TABLET SL ONE (17:59)
[2025-04-23] MEDS ORDERED: ONDANSETRON *ODT* 4 MG TABLET ONE (17:59)
[2025-04-23] MEDS: clonazePAM 0.5 MG ODT TABLETS SL ONE (20:12)
[2025-04-23] MEDS: DOCUSATE SODIUM 100 MG CAPSULE (FP) PO SCH (21:53)
[2025-04-23] MEDS: THIAMINE 100 MG TABLET PO SCH (21:53)
[2025-04-23] MEDS: MELATONIN 5 MG TABLETS PO SCH (21:55)
[2025-04-24] MEDS: NICOTINE 14 MG/24 HOURS TOPICAL PATCH TD SCH (09:50)
[2025-04-24] MEDS: FERROUS SO4 325 MG TABLET (FP) PO SCH (09:50)
[2025-04-24] MEDS: TAMSULOSIN HCL 0.4 MG CAP PO SCH (09:50)
[2025-04-24] MEDS: PRENATAL VITAMINS W/ FOLIC ACID TABLET (FP) PO SCH (09:51)
[2025-04-24] MEDS ORDERED: clonazePAM 1 MG ODT TABLETS SL SCH (10:00)
[2025-04-24] MEDS: clonazePAM 1 MG ODT TABLETS SL SCH (10:19)
[2025-04-24] MEDS: IBUPROFEN 600 MG TABLET (FP) PO PRN (11:23)
[2025-04-24] MEDS: GABAPENTIN 300 MG CAPSULE PO SCH (13:07)
[2025-04-24 13:40] LABS: MCHC 32.8 g/dl (32.3-36.5); MEAN CELL VOLUME 88.6 fl (79.0-92.2); MEAN PLT VOLUME 11.3 fl (9.4-12.4); RDW 12.6 % (12.1-15.9)
[2025-04-24 13:45] LABS: CO2 31.0 mmol/L (21-32); GLUCOSE,RANDOM 106.0 mg/dL (74-106)
[2025-04-24 13:48] LABS: CREATININE 0.7 mg/dL (0.55-1.3); SGOT/AST 40.0 U/L (15-37); SGPT/ALT 68.0 U/L (13-61)
[2025-04-24 13:50] LABS: TOT PROT 6.0 g/dl (6.4-8.2)
[2025-04-24 13:52] LABS: ALK PHOS 80.0 U/L (45-117)
[2025-04-24] MEDS: SUVOREXANT 5 MG TABLET PO PRN (21:18)
[2025-04-25 16:53] LABS: URINE APPEARANCE CLEAR; URINE BILIRUBIN NEGATIVE (NEGATIVE); URINE COLOR YELLOW; URINE GLUCOSE (UA) NEGATIVE (NEGATIVE); URINE KETONE NEGATIVE (NEGATIVE); URINE LEUK ESTERASE NEGATIVE (NEGATIVE); URINE NITRITE NEGATIVE (NEGATIVE); URINE PROTEIN NEGATIVE (NEGATIVE); URINE UROBILINOGEN 1.0 mg/dL (0.2-1.0)
[2025-04-27] MEDS: SUVOREXANT 5 MG TABLET PO PRN (21:18)
[2025-04-28] MEDS: POLYETHYLENE GLYCOL (HEALTHYLAX) 3350 17 GM PACKET PO PRN (09:55)
[2025-04-28] MEDS: clonazePAM 1 MG ODT TABLETS SL SCH (21:58)
[2025-04-30] MEDS: NICOTINE POLACRILEX 2 MG GUM BUC PRN (10:00)
[2025-04-30] MEDS: ACETAMINOPHEN 325 MG TABLET (FP) PO PRN (19:26)
[2025-04-30] MEDS: SUVOREXANT 5 MG TABLET PO PRN (21:32)
[2025-05-03] MEDS: SUVOREXANT 5 MG TABLET PO PRN (21:40)
[2025-05-05] MEDS: SUVOREXANT 5 MG TABLET PO PRN (21:23)
[2025-05-08] MEDS: SUVOREXANT 5 MG TABLET PO PRN (21:17)
[2025-05-09] MEDS: FAMOTIDINE 20 MG TABLET PO PRN (21:12)
[2025-05-10] MEDS: IBUPROFEN 400 MG TABLET (FP) PO PRN (13:33)
[2025-05-11 07:03] VITALS: TEMP 96.5
[2025-05-11 08:51] VITALS: RESP 17
[2025-05-11] MEDS: SUVOREXANT 5 MG TABLET PO PRN (21:35)
[2025-05-12 08:59] VITALS: BP 127/73; PULSE 95
== END 2025-05-12 11:08 | disposition home or self-care (01) | DRG 772 ==
LOC: YASAS 15:14 → Y3E 17:43 → Y3NR 05-05 11:43 → Y3E 05-05 11:49 → Y3NR 05-05 11:54 → Y3E 05-05 11:56
PROVIDERS: ADMIT Neuromusculoskeletal Medicine & OMM; ATTEND Psychiatry & Neurology Pain Medicine
PROC: HZ42ZZZ Group Counseling for Substance Abuse Treatment, Cognitive-Behavioral (ICD-10-PCS; principal; 2025-04-23)
DX: F11.20 Opioid dependence, uncomplicated (principal); F14.20 Cocaine dependence, uncomplicated; F10.20 Alcohol dependence, uncomplicated; F13.20 Sedative, hypnotic or anxiolytic dependence, uncomplicated; F17.210 Nicotine dependence, cigarettes, uncomplicated; F19.282 Other psychoactive substance dependence with psychoactive substance-induced sleep disorder; F19.280 Other psychoactive substance dependence with psychoactive substance-induced anxiety disorder; F32.A Depression, unspecified; F41.9 Anxiety disorder, unspecified; F90.0 Attention-deficit hyperactivity disorder, predominantly inattentive type; E78.5 Hyperlipidemia, unspecified; K21.9 Gastro-esophageal reflux disease without esophagitis; M54.50 Low back pain, unspecified; G89.29 Other chronic pain; N40.0 Benign prostatic hyperplasia without lower urinary tract symptoms
CPT/HCPCS: 36415; 80053; 80305; 80307; 81003; 85027; 86780; 87811; 93005; 93010; Q0162

== ENCOUNTER 2025-07-06 13:38 | Inpatient (IN) | payer OTHER ==
[2025-07-06 14:44] VITALS: BMI 25.1
[2025-07-06] MEDS ORDERED: MAGNESIUM HYDROX 2400MG/30ML ORAL SUSPENSION 30 ML CUP PO PRN (15:19)
[2025-07-06] MEDS ORDERED: POLYETHYLENE GLYCOL (HEALTHYLAX) 3350 17 GM PACKET PO PRN (15:19)
[2025-07-06] MEDS ORDERED: ACETAMINOPHEN 325 MG TABLET (FP) PO PRN (15:19)
[2025-07-06] MEDS ORDERED: MAG HYDROX/AL HYDROX/SIMETH 30 ML UNIT-DOSE CUP PO PRN (15:19)
[2025-07-06] MEDS ORDERED: ONDANSETRON *ODT* 4 MG TABLET SL PRN (15:19)
[2025-07-06] MEDS ORDERED: NICOTINE POLACRILEX 2 MG LOZENGE BC PRN (15:19)
[2025-07-06] MEDS ORDERED: guaiFENesin 600 MG TABLET.ER (FP) PO PRN (15:19)
[2025-07-06] MEDS ORDERED: BISMUTH SUBSALICYLATE 524 MG/30 ML PO PRN (15:19)
[2025-07-06] MEDS ORDERED: IBUPROFEN 400 MG TABLET (FP) PO PRN (15:19)
[2025-07-06] MEDS ORDERED: NICOTINE POLACRILEX 2 MG GUM BUC PRN (15:19)
[2025-07-06] MEDS ORDERED: LOPERAMIDE HCL 2 MG CAPSULE PO PRN (15:19)
[2025-07-06] MEDS ORDERED: BENZOCAINE/MENTHOL (CHLORASEPTIC ) LOZENGE MM PRN (15:19)
[2025-07-06] MEDS ORDERED: BENZONATATE 200 MG CAPSULE PO PRN (15:19)
[2025-07-06] MEDS ORDERED: DICYCLOMINE HCL 10 MG CAPSULE PO PRN (15:19)
[2025-07-06] MEDS ORDERED: P-EPHED 60MG/TRIPROLIDI 2.5MG TABLET PO PRN (15:19)
[2025-07-06] MEDS ORDERED: NALOXONE (NARCAN) HCL 4 MG/0.1 ML SPRAY NS PRN (15:19)
[2025-07-06] MEDS: METHOCARBAMOL 500 MG TABLET PO PRN (17:27)
[2025-07-06] MEDS: IBUPROFEN 600 MG TABLET (FP) PO PRN (17:27)
[2025-07-06] MEDS: levETIRAcetam 500 MG TABLET (FP) PO SCH (19:29)
[2025-07-06] MEDS ORDERED: clonazePAM 1 MG ODT TABLETS SL ONE (22:00)
[2025-07-06] MEDS: MELATONIN 5 MG TABLETS PO SCH (22:24)
[2025-07-06] MEDS: ACAMPROSATE CALCIUM 333 MG TABLET.DR PO SCH (22:24)
[2025-07-06] MEDS: DOCUSATE SODIUM 100 MG CAPSULE (FP) PO SCH (22:24)
[2025-07-06] MEDS: SULFAMETHOXAZOLE/TRIMETHOPRIM 800MG/160MG D.S. TABLET PO SCH (22:24)
[2025-07-06] MEDS: THIAMINE 100 MG TABLET PO SCH (22:24)
[2025-07-06] MEDS: hydrOXYzine PAMOATE 25 MG CAPSULE (FP) PO PRN (22:25)
[2025-07-06] MEDS: clonazePAM 1 MG ODT TABLETS SL ONE (22:31)
[2025-07-06] MEDS: GABAPENTIN 300 MG CAPSULE PO ONE (22:32)
[2025-07-07] MEDS: TAMSULOSIN HCL 0.4 MG CAP PO SCH (08:01)
[2025-07-07] MEDS: PRENATAL VITAMINS W/ FOLIC ACID TABLET (FP) PO SCH (09:40)
[2025-07-07] MEDS: NICOTINE 14 MG/24 HOURS TOPICAL PATCH TD SCH (09:42)
[2025-07-07] MEDS: clonazePAM 1 MG ODT TABLETS SL SCH (10:46)
[2025-07-07 11:44] LABS: MCHC 32.7 g/dl (32.3-36.5); MEAN CELL VOLUME 91.1 fl (79.0-92.2); MEAN PLT VOLUME 11.2 fl (9.4-12.4); RDW 12.4 % (12.1-15.9)
[2025-07-07 12:09] LABS: GLUCOSE,RANDOM 86 mg/dL (74-106); TOT PROT 5.9 g/dl (6.4-8.2)
[2025-07-07 12:10] LABS: CO2 28 mmol/L (21-32)
[2025-07-07 12:12] LABS: ALK PHOS 56 U/L (40-150)
[2025-07-07 12:15] LABS: CREATININE 0.83 mg/dL (0.55-1.3); SGOT/AST 19 U/L (5-34); SGPT/ALT 13 U/L (0-55)
[2025-07-07] MEDS: FERROUS SO4 325 MG TABLET (FP) PO SCH (13:37)
[2025-07-07] MEDS: GABAPENTIN 300 MG CAPSULE PO SCH (13:37)
[2025-07-08 13:04] VITALS: BP 100/66; PULSE 68; RESP 17; TEMP 97.7
== END 2025-07-08 13:51 | disposition other institution (70) | DRG 773 ==
LOC: YASAS 13:38 → Y6N 15:36
PROVIDERS: ADMIT Neuromusculoskeletal Medicine & OMM; ATTEND Counselor Addiction (Substance Use Disorder)
PROC: HZ2ZZZZ Detoxification Services for Substance Abuse Treatment (ICD-10-PCS; principal; 2025-07-06)
DX: F11.20 Opioid dependence, uncomplicated (principal); F10.20 Alcohol dependence, uncomplicated; F13.20 Sedative, hypnotic or anxiolytic dependence, uncomplicated; F14.20 Cocaine dependence, uncomplicated; F17.210 Nicotine dependence, cigarettes, uncomplicated; F41.9 Anxiety disorder, unspecified; E78.5 Hyperlipidemia, unspecified; G40.909 Epilepsy, unspecified, not intractable, without status epilepticus; J21.9 Acute bronchiolitis, unspecified; B18.2 Chronic viral hepatitis C; N40.0 Benign prostatic hyperplasia without lower urinary tract symptoms
CPT/HCPCS: 36415; 80053; 80305; 80307; 85027; 86780; 87811